=== PATIENT | female | born 1995 | race Caucasian/White ===

== ENCOUNTER 2016-12-30 16:40 | Emergency (ER) | payer BC, OTHER ==
[2016-12-30 17:17] VITALS: RESP 18
[2016-12-30] MEDS ORDERED: SODIUM CHLORIDE 0.9% 1,000 ML IV STA (18:55)
--- NOTE | 2016-12-30 18:57 | ED ---
General Adult HPI - General Chief complaint: Vaginal Bleeding Stated complaint: Spotting, abd pain, Time Seen by Provider: 12/30/16 18:44 Source: patient, RN notes reviewed Mode of arrival: ambulatory Limitations: no limitations - History of Present Illness Initial comments: 21-year-old female presents to the emergency Department chief complaint of abdominal cramping in . Patient states she started to have some white spotting and now it has progressed to blood with clots. Patient states that she 's had some cramping with this as well. Patient states she feels like she had a very light menstrual cycle one month ago but she does not know how far along she is. Patient states she is a . Patient denies any fever chills nausea or vomiting with this. Patient states that she was concerned due to her symptoms so she thought that she should be evaluated. Patient denies any recent fever, chills, shortness of breath, chest pain, back pain, nausea vomiting, numbness or tingling, dysuria or hematuria, constipation or diarrhea, headaches or visual changes, or any other current symptoms. - Related Data Previous Rx's Medication Instructions Recorded Nitrofurantoin Macrocrystal 100 mg PO BID #14 cap 12/30/16 [Macrodantin] Lrr-Ljnl-Lbjod Acid 1 cap PO DAILY #30 cap 12/30/16 [-U Capsule (formulary)] Allergies Allergy/AdvReac Type Severity Reaction Status Date / Time Influenza Virus Vaccines Allergy Nausea & Verified 12/30/16 19:01 Vomiting penicillin V Allergy Rash/Hives Verified 12/30/16 19:01 Penicillins Allergy Rash/Hives Verified 12/30/16 19:01 Sulfa (Sulfonamide Allergy Rash/Hives Verified 12/30/16 19:01 Antibiotics) Review of Systems ROS Statement: Those systems with pertinent positive or pertinent negative responses have been documented in the HPI. ROS Other: All systems not noted in ROS Statement are negative. 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 History of Any Multi-Drug Resistant Organisms: None Reported Past Surgical History: No Surgical Hx Reported Additional Past Surgical History / Comment(s): wisdom teeth Past Anesthesia/Blood Transfusion Reactions: No Reported Reaction Past Psychological History: No Psychological Hx Reported, Depression Smoking Status: Never smoker Past Alcohol Use History: None Reported Past Drug Use History: None Reported - Past Family History Mother History Unknown: Yes Additional Family Medical History / Comment(s): grandmother cervix cancer, maternal grandfather "heart issues" General Exam - General Exam Comments Initial Comments: General: The patient is awake and alert, in no distress, and does not appear acutely ill. Eye: Pupils are equal, round and reactive to light, extra-ocular movements are intact; there is normal conjunctiva bilaterally. No signs of icterus. Ears, nose, mouth and throat: There are moist mucous membranes. Neck: The neck is supple, there is no tenderness. Cardiovascular: There is a regular rate and rhythm. No murmur, rub or gallop is appreciated. Respiratory: Lungs are clear to auscultation, respirations are non-labored, breath sounds are equal. No wheezes, stridor, rales, or rhonchi. Gastrointestinal: Soft, non-distended, non-tender abdomen without masses or organomegaly noted. There is no rebound or guarding present. No CVA tenderness. Bowel sounds are unremarkable. Back: There is no tenderness to palpation in the midline. There is no obvious deformity. No rashes noted. Musculoskeletal: Normal ROM, no tenderness, There is no pedal edema. There is no calf tenderness or swelling. Sensation intact. Pulses equal bilaterally 2+. Neurological: CN II-XII intact, There are no obvious motor or sensory deficits. Coordination appears grossly intact. Speech is normal. Skin: Skin is warm and dry and no rashes or lesions are noted. Psychiatric: Cooperative, appropriate mood & affect, normal judgment. Limitations: no limitations External exam: Present: normal external exam Speculum exam: Present: normal speculum exam By manual exam: Present: normal by manual exam Course Vital Signs 12/30/16 12/30/16 17:14 18:17 Temperature 98.3 F Pulse Rate 88 75 Respiratory 18 18 Rate Blood Pressure 130/62 122/60 O2 Sat by Pulse 100 100 Oximetry Medical Decision Making - Medical Decision Making 21-year-old female presents emergency 5 chief complaint of vaginal bleeding and abdominal cramping and . At this time patient's lab work is reviewed as well as ultrasound. Patient does appear to be 20 weeks. We discussed she does need to see her [facility]. We'll start her on vitamins as well as antibiotics for UTI. We did discuss return parameters and follow-up and all questions. She stated that she understood and she is in agreement the plan. She will be discharged home. - Lab Data Result diagrams: 12/30/16 18:55 12/30/16 18:55 Lab Results 12/30/16 12/30/16 12/30/16 Range/Units 18:55 18:55 18:55 WBC 12.0 H (3.8-10.6) k/uL RBC 3.92 (3.80-5.40) m/uL Hgb 11.7 (11.4-16.0) gm/dL Hct 34.2 (34.0-46.0) % MCV 87.1 (80.0-100.0) fL MCH 29.8 (25.0-35.0) pg MCHC 34.2 (31.0-37.0) g/dL RDW 15.8 H (11.5-15.5) % Plt Count 331 (150-450) k/uL Neutrophils % 74 % Lymphocytes % 19 % Monocytes % 4 % Eosinophils % 1 % Basophils % 0 % Neutrophils # 8.9 H (1.3-7.7) k/uL Lymphocytes # 2.3 (1.0-4.8) k/uL Monocytes # 0.5 (0-1.0) k/uL Eosinophils # 0.1 (0-0.7) k/uL Basophils # 0.0 (0-0.2) k/uL Sodium 137 (137-145) mmol/L Potassium 4.5 (3.5-5.1) mmol/L Chloride 107 (98-107) mmol/L Carbon Dioxide 23 (22-30) mmol/L Anion Gap 7 mmol/L BUN 3 L (7-17) mg/dL Creatinine 0.53 (0.52-1.04) mg/dL Est GFR (MDRD) Af Amer >60 (>60 ml/min/1.73 sqM) Est GFR (MDRD) Non-Af >60 (>60 ml/min/1.73 sqM) Glucose 67 L (74-99) mg/dL Calcium 9.0 (8.4-10.2) mg/dL Total Bilirubin 0.4 (0.2-1.3) mg/dL AST 20 (14-36) U/L ALT 20 (9-52) U/L Alkaline Phosphatase 56 (38-126) U/L Total Protein 7.0 (6.3-8.2) g/dL Albumin 3.7 (3.5-5.0) g/dL HCG, Quant 14167.3 mIU/mL Urine Color Urine Appearance (Clear) Urine pH (5.0-8.0) Ur Specific [place] (1.001-1.035) Urine Protein (Negative) Urine Glucose (UA) (Negative) Urine Ketones (Negative) Urine Blood (Negative) Urine Nitrite (Negative) Urine Bilirubin (Negative) Urine Urobilinogen (<2.0) mg/dL Ur Leukocyte Esterase (Negative) Urine RBC (0-5) /hpf Urine WBC (0-5) /hpf Urine WBC Clumps (None) /hpf Ur Squamous Epith Cells (0-4) /hpf Urine Mucus (None) /hpf Blood Type A Positive Blood Type Recheck No 12/30/16 Range/Units 19:00 WBC (3.8-10.6) k/uL RBC (3.80-5.40) m/uL Hgb (11.4-16.0) gm/dL Hct (34.0-46.0) % MCV (80.0-100.0) fL MCH (25.0-35.0) pg MCHC (31.0-37.0) g/dL RDW (11.5-15.5) % Plt Count (150-450) k/uL Neutrophils % % Lymphocytes % % Monocytes % % Eosinophils % % Basophils % % Neutrophils # (1.3-7.7) k/uL Lymphocytes # (1.0-4.8) k/uL Monocytes # (0-1.0) k/uL Eosinophils # (0-0.7) k/uL Basophils # (0-0.2) k/uL Sodium (137-145) mmol/L Potassium (3.5-5.1) mmol/L Chloride (98-107) mmol/L Carbon Dioxide (22-30) mmol/L Anion Gap mmol/L BUN (7-17) mg/dL Creatinine (0.52-1.04) mg/dL Est GFR (MDRD) Af Amer (>60 ml/min/1.73 sqM) Est GFR (MDRD) Non-Af (>60 ml/min/1.73 sqM) Glucose (74-99) mg/dL Calcium (8.4-10.2) mg/dL Total Bilirubin (0.2-1.3) mg/dL AST (14-36) U/L ALT (9-52) U/L Alkaline Phosphatase (38-126) U/L Total Protein (6.3-8.2) g/dL Albumin (3.5-5.0) g/dL HCG, Quant mIU/mL Urine Color Yellow Urine Appearance Cloudy H (Clear) Urine pH 5.5 (5.0-8.0) Ur Specific [place] 1.008 (1.001-1.035) Urine Protein 1+ H (Negative) Urine Glucose (UA) Negative (Negative) Urine Ketones Negative (Negative) Urine Blood Moderate H (Negative) Urine Nitrite Negative (Negative) Urine Bilirubin Negative (Negative) Urine Urobilinogen <2.0 (<2.0) mg/dL Ur Leukocyte Esterase Large H (Negative) Urine RBC 29 H (0-5) /hpf Urine WBC >182 H (0-5) /hpf Urine WBC Clumps Few H (None) /hpf Ur Squamous Epith Cells <1 (0-4) /hpf Urine Mucus Rare H (None) /hpf Blood Type Blood Type Recheck Disposition Clinical Impression: UTI (urinary tract infection), Disposition: HOME SELF-CARE Condition: Stable Instructions: (ED), Urinary Tract Infection in Women (ED) Additional Instructions: Please use medication as discussed. Please follow up with family doctor if symptoms have not improved over the next two days. Please return to the emergency room if your symptoms increase or worsen or for any other concerns. Prescriptions: Nitrofurantoin Macrocrystal [Macrodantin] 100 mg PO BID #14 cap [id number] Acid [-U Capsule (formulary)] 1 cap PO DAILY # 30 cap Referrals: Charles Song MD [Primary Care Provider] - 1-2 days Leticia Nieto DO [Doctor of Osteopathic Medicine] - 1-2 days Time of Disposition: 20:50
[2016-12-30 19:12] LABS: Basophils % (A) 0 %; CH 29.1; CHCM 33.6; Eosinophils # (A) 0.1 k/uL (0-0.7); Eosinophils % (A) 1 %; HCT 34.2 % (34.0-46.0); HDW 2.96; HGB 11.7 gm/dL (11.4-16.0); Luc # (Auto) 0.16; Luc % (Auto) 1; Lymphocytes # (A) 2.3 k/uL (1.0-4.8); Lymphocytes % (A) 19 %; MCH 29.8 pg (25.0-35.0); MCHC 34.2 g/dL (31.0-37.0); MCV 87.1 fL (80.0-100.0); Mean Platelet Volume 7.2; Monocytes # (A) 0.5 k/uL (0-1.0); Monocytes % (A) 4 %; Neutrophils # (A) 8.9 k/uL (1.3-7.7); Neutrophils % (A) 74 %; RBC 3.92 m/uL (3.80-5.40); RDW 15.8 % (11.5-15.5); WBC (Perox) 12.27
[2016-12-30 19:28] LABS: ALT 20 U/L (9-52); AST 20 U/L (14-36); Alkaline Phosphatase 56 U/L (38-126); Anion Gap 7 mmol/L; Blood Urea Nitrogen 3 mg/dL (7-17); Carbon Dioxide 23 mmol/L (22-30); Chloride 107 mmol/L (98-107); Glucose 67 mg/dL (74-99); Non-African American GFR(MDRD) >60 (>60 ml/min/1.73 sqM); Potassium 4.5 mmol/L (3.5-5.1); Sodium 137 mmol/L (137-145); Total Bilirubin 0.4 mg/dL (0.2-1.3)
[2016-12-30 19:38] LABS: Appearance,Urine Cloudy (Clear); Bilirubin,Urine Negative (Negative); Glucose,Urine (UA) Negative (Negative); Ketones,Urine Negative (Negative); Leukocyte Esterase,Urine Large (Negative); Mucus,Urine Rare /hpf; Nitrite,Urine Negative (Negative); PH, Urine 5.5 (5.0-8.0); Particle Count 4853; Protein,Urine 1+ (Negative); RBC,Urine 29 /hpf (0-5); Specific Gravity,Urine 1.008 (1.001-1.035); Squamous Epithelial Cell,Urine <1 /hpf (0-4); UA Billing (MACRO vs. MICRO) MICRO; Urobilinogen,Urine <2.0 mg/dL (<2.0); WBC,Urine >182 /hpf (0-5)
[2016-12-30 20:11] LABS: HCG,Quantitative Serum 18888.3 mIU/mL
--- NOTE | 2016-12-30 20:25 | US ---
EXAMINATION TYPE: US OB >= 14 wk fetus DATE OF EXAM: 12/30/2016 COMPARISON: None CLINICAL HISTORY: PainBleeding and cramping x couple days TECHNIQUE: Transabdominal (TA) GESTATIONAL AGE / DATING Physician Established: Not established yet Dates by LMP: Unknown Dates by First Scan: This is 1st scan Dates by Current Scan: (20 weeks/4 days) EDC: 05/15/2017 SURVEY IUP: Single PLACENTA: Posterior PREVIA: No Previa VANESA: 14.9 cm Normal CERVICAL LENGTH (transabdominal: norm > 3.0cm): 3.7 cm BIOMETRY PRESENTATION: Breech BPD: 4.9 cm 20 weeks / 6 days HC: 18.6 cm 20 weeks / 6 days amniotic fluid is adequate. AC: 16.7 cm 21 weeks / 4 days FL: 3.3 cm 20 weeks / 3 days ESTIMATED WEIGHT IN GRAMS: 395.0 grams ESTIMATED WEIGHT IN LBS/OZS: 0 lbs. 14 oz. HC/AC: 1.12 Normal FL/AC: 20.05 HEART RATE: 145 bpm RHYTHM: Normal Viable single IUP measuring 20 weeks 4 days with a heart rate of 145bpm and an estimated delivery ban e of 05/15/2017. IMPRESSION: Ultrasound gestational age is 20 weeks 4 days. I see no complicating process. Amniotic fluid is adequ ate.
[2016-12-30 21:18] VITALS: BP 134/61; PULSE 78; TEMP 98
== END 2016-12-30 21:17 | disposition home or self-care (01) ==
LOC: EC 16:40
DX: O23.42 Unspecified infection of urinary tract in pregnancy, second trimester (principal); O46.92 Antepartum hemorrhage, unspecified, second trimester; O99.89 Other specified diseases and conditions complicating pregnancy, childbirth and the puerperium; R10.9 Unspecified abdominal pain; Z3A.20 20 weeks gestation of pregnancy; Z88.7 Allergy status to serum and vaccine; Z88.0 Allergy status to penicillin; Z88.2 Allergy status to sulfonamides
CPT/HCPCS: 36415; 86900; 86901; 80053; 87591; 87491; 85025; 81001; 84702; 87808; 87070; 87086; 76805; 99284; 96365; 96361; J0696; 87205

== ENCOUNTER → 2017-01-25 | Outpatient (CLI) | payer BC, OTHER ==
[2017-01-25 09:54] LABS: CHCM 32.7; HCT 32.1 % (34.0-46.0); HDW 3.21; HGB 10.9 gm/dL (11.4-16.0); Hypochromasia Slight; MCH 29.1 pg (25.0-35.0); MCHC 33.9 g/dL (31.0-37.0); MCV 85.9 fL (80.0-100.0); Mean Platelet Volume 7.1; RBC 3.73 m/uL (3.80-5.40); WBC 10.8 k/uL (3.8-10.6)
[2017-01-25 10:26] LABS: Non-African American GFR(MDRD) >60 (>60 ml/min/1.73 sqM)
[2017-01-25 10:57] LABS: Hepatitis B Surface Ag Index 0.06
[2017-01-25 15:56] LABS: Treponemal Ab Non-Reactive (Non-Reactive)
[2017-01-26 06:43] LABS: Toxoplasma Antibody (IgG) 21.2 IU/mL (<7.2)
== END | disposition home or self-care (01) ==
LOC: LABWHC1 08:29
PROVIDERS: ATTEND Obstetrics & Gynecology
DX: Z34.81 Encounter for supervision of other normal pregnancy, first trimester (principal); R53.83 Other fatigue
CPT/HCPCS: 36415; 82565; 82950; 85027; 86762; 86777; 86778; 86780; 86850; 86900; 86901; 87340; 87390

== ENCOUNTER 2017-03-12 11:25 | Outpatient (CLI) | payer BC, OTHER ==
[2017-03-12] MEDS ORDERED: BETAMET ACET-BETAMETH SOD PHOS 6 MG/ML VIAL IM SCH (12:00)
--- NOTE | 2017-04-29 08:44 | P.MSEPDOC ---
Presenting Problems - Arrival Data Date of Arrival on Unit: 03/12/17 Time of Arrival on Unit: 11:25 Mode of Transport: Ambulatory Medical History - Information : 2 Para: 1 Term: 1 : 0 Abortions: Spontaneous or Elective: 0 Number of Living Children: 1 - Gestational Age Gestational Age by JANELL (wks/days): 30 Weeks and 6 Days Disposition - Disposition OB Disposition: Discharge to home, Written follow up instructions reviewed Discharge Date: 03/12/17 Discharge Time: 12:20 I agree with the RN Medical Screening Exam: Yes Risk & Benefit of care provided described in d/c instruction: Yes Diagnosis: LABOR WITHOUT DELIVERY, THIRD TRIMESTER
== END 2017-03-12 12:20 | disposition home or self-care (01) ==
LOC: FBPOP 11:25
PROVIDERS: ATTEND Obstetrics & Gynecology
DX: O60.03 Preterm labor without delivery, third trimester (principal); Z3A.30 30 weeks gestation of pregnancy
CPT/HCPCS: 59025; 99214; 96372; 84112; J0702

== ENCOUNTER 2017-03-13 11:41 | Outpatient (CLI) | payer BC, OTHER ==
[2017-03-13] MEDS ORDERED: BETAMET ACET-BETAMETH SOD PHOS 6 MG/ML VIAL IM ONE (12:15)
[2017-03-13 13:35] VITALS: BP 132/63; PULSE 89; RESP 18; TEMP 98.8
--- NOTE | 2017-03-14 08:21 | P.MSEPDOC ---
Presenting Problems - Arrival Data Date of Arrival on Unit: 03/13/17 Time of Arrival on Unit: 11:41 Mode of Transport: Ambulatory - Complaint OB-Reason for Admission/Chief Complaint: NST, Celestone Injection, Other Comment: ffn Medical History - Information : 2 Para: 1 Term: 1 : 0 Abortions: Spontaneous or Elective: 0 Number of Living Children: 1 - Gestational Age Gestational Age by JANELL (wks/days): 31 Weeks and 0 Days Review of Systems - Review of Systems Constitutional: No problems Breast: No problems ENT: No problems Cardiovascular: No problems Respiratory: No problems Gastrointestinal: No problems Genitourinary: No problems Musculoskeletal: No problems Neurological: No problems Skin: No problems Vital Signs - Temperature Temperature: 98.8 F Temperature Source: Temporal Artery Scan - Pulse Right Brachial Pulse Rate: 89 Pulse Assessment Method: Automatic Cuff - Respirations Respiratory Rate: 18 Oxygen Delivery Method: Room Air O2 Sat by Pulse Oximetry: 100 - Blood Pressure Right Arm Blood Pressure: 132/63 Blood Pressure Mean: 86 Blood Pressure Source: Automatic Cuff Medical Screen Scoring (Pre) - Cervical Exam Dilation: Exam Deferred Effacement: Exam Deferred - Uterine Contractions Frequency: N/A Duration: N/A Intensity: N/A - Maternal Vital Signs Maternal Temperature: N/A Maternal Blood Pressure: N/A Signs of Preeclampsia: N/A Maternal Respirations: N/A - Maternal Trauma Maternal Trauma: N/A - Assessment Baseline FHR: 125 Heart Rate - NICHD Category: Category I (Normal) = 0 NST: Reactive Position: N/A Station: N/A - Total Score Total Score (Pre): 0 - Level of Risk Level of Risk: N/A Physician Notification (Pre) - Physician Notified Physician Notified Date: 03/13/17 Physician Notified Time: 13:17 Physician/Practitioner Notifed:: Dr. Wright Spoke With: Dr. Wright New Order Received: Yes - Notification Comment Comment: discharge pt home Disposition - Disposition OB Disposition: Triage, Discharge to home, Written follow up instructions reviewed Discharge Date: 03/13/17 Discharge Time: 13:30 I agree with the RN Medical Screening Exam: Yes Risk & Benefit of care provided described in d/c instruction: Yes Diagnosis: LABOR WITHOUT DELIVERY, THIRD TRIMESTER
== END 2017-03-13 13:30 | disposition home or self-care (01) ==
LOC: FBPOP 11:41
PROVIDERS: ATTEND Obstetrics & Gynecology
DX: O60.03 Preterm labor without delivery, third trimester (principal); Z3A.31 31 weeks gestation of pregnancy
CPT/HCPCS: 59025; 99213; 96372; 82731; J0702

== ENCOUNTER 2017-04-24 10:56 | Inpatient (IN) | payer BC, OTHER ==
[2017-04-24] MEDS ORDERED: CARBOPROST TROMETHAMINE 250 MCG/ML 1 ML AMP IM PRN (11:00)
[2017-04-24] MEDS ORDERED: LIDOCAINE 1% (PF) 10 MG/ML (30 ML SDV) SQ PRN (11:00)
[2017-04-24] MEDS ORDERED: TERBUTALINE 1 MG/ML VIAL SQ PRN (11:00)
[2017-04-24] MEDS ORDERED: OXYTOCIN 20 UNITS/1000 ML NS 1,000 ML IV SCH ×2 (11:00→16:27)
[2017-04-24] MEDS ORDERED: METHYLERGONOVINE 0.2 MG/ML 1 ML AMP IM PRN (11:00)
[2017-04-24] MEDS ORDERED: OXYTOCIN 10 UNIT/ML 1 ML VIAL IM PRN (11:00)
[2017-04-24 11:10] VITALS: BMI 30.8
[2017-04-24] MEDS: LACTATED RINGERS 1,000 ML IV SCH ×2 (11:17→13:42)
[2017-04-24] MEDS ORDERED: CLINDAMYCIN 900 MG in DEXTROSE 5% IN WATER 50 ML IVPB STA ×2 (11:40)
[2017-04-24 12:08] LABS: Basophils % (A) 0 %; CHCM 31.6; Eosinophils # (A) 0.1 k/uL (0-0.7); Eosinophils % (A) 1 %; HCT 30.1 % (34.0-46.0); HDW 3.26; HGB 9.5 gm/dL (11.4-16.0); Hypochromasia Moderate; Luc # (Auto) 0.13; Luc % (Auto) 1; Lymphocytes # (A) 2.7 k/uL (1.0-4.8); Lymphocytes % (A) 27 %; MCHC 31.4 g/dL (31.0-37.0); MCV 79.6 fL (80.0-100.0); Mean Platelet Volume 7.6; Monocytes # (A) 0.6 k/uL (0-1.0); Monocytes % (A) 6 %; Neutrophils # (A) 6.6 k/uL (1.3-7.7); Neutrophils % (A) 65 %; RBC 3.78 m/uL (3.80-5.40); WBC 10.3 k/uL (3.8-10.6); WBC (Perox) 10.95
--- NOTE | 2017-04-24 13:23 | P.HPOB ---
History of Present Illness H&P Date: 04/24/17 Chief Complaint: Pressure, advanced cervical dilation This is a 21-year-old female 2 para 1 at 37-0/7 weeks with an estimated date of confinement of 05/15/2017, who presents to labor and delivery after being seen in the office today for her routine visit. She was found to be 7-1/2 cm at that visit. She had previously been found to be 3 cm at 31 weeks and was given 2 doses of Celestone at that time. She was transferred to maternal- medicine when she was at 34 weeks and found to be donta. She did leave AGAINST MEDICAL ADVICE but continued to have no further contractions. The last 2 weeks she has been dilated to 5-1/2 cm. Today she complained of more pressure and back pain along with more mucus discharge. She also did have some bloody show approximate 2 days ago. labs: GC/chlamydia-negative Random glucose-67 Blood type-A+ Obstetrical ultrasound-normal anatomy One hour Glucola-68 Hepatitis B surface antigen-negative Hemoglobin-10.9 Rubella-nonimmune Toxoplasma screen-positive IgG HIV-nonreactive Syphilis antibody-negative Obstetrical history: . History of 1 vaginal delivery at 40-1/2 weeks. Gynecologic history: No history of sexual transmitted diseases. Social history: She is single. 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 History of Any Multi-Drug Resistant Organisms: None Reported Additional Past Surgical History / Comment(s): wisdom teeth Past Anesthesia/Blood Transfusion Reactions: No Reported Reaction Past Psychological History: No Psychological Hx Reported Smoking Status: Never smoker Past Alcohol Use History: None Reported Past Drug Use History: None Reported - Past Family History Mother History Unknown: Yes Additional Family Medical History / Comment(s): grandmother cervix cancer, maternal grandfather "heart issues" Medications and Allergies Home Medications Medication Instructions Recorded Confirmed Type No Known Home Medications [No 04/24/17 04/24/17 History Known Home Medications] Allergies Allergy/AdvReac Type Severity Reaction Status Date / Time Influenza Virus Vaccines Allergy Nausea & Verified 04/24/17 11:00 Vomiting penicillin V Allergy Rash/Hives Verified 04/24/17 11:00 Penicillins Allergy Rash/Hives Verified 04/24/17 11:00 Sulfa (Sulfonamide Allergy Rash/Hives Verified 04/24/17 11:00 Antibiotics) Exam Osteopathic Statement: *. No significant issues noted on an osteopathic structural exam other than those noted in the History and Physical/Consult. - Vital Signs Vital signs: Vital Signs Temp Pulse Resp BP Pulse Ox 04/24/17 11:02 97.9 F 96 16 130/74 99 Intake and Output 04/23/17 04/24/17 04/24/17 22:59 06:59 14:59 Other: Weight 89.358 kg Patient Weight 04/25/17 06:59 Weight 89.358 kg HEENT: Within normal limits Heart: Regular rate and rhythm Lungs: Clear to auscultation bilaterally Abdomen: Cervix: 7-1/2 cm/70%/-2 station heart tones reactive Contractions: Irregular Extremities: Negative Homans Results Result Diagrams: 04/24/17 11:20 Abnormal Lab Results - Last 24 Hours (Table) 04/24/17 Range/Units 11:20 RBC 3.78 L (3.80-5.40) m/uL Hgb 9.5 L (11.4-16.0) gm/dL Hct 30.1 L (34.0-46.0) % MCV 79.6 L (80.0-100.0) fL RDW 16.0 H (11.5-15.5) % Assessment and Plan (1) 37 weeks gestation of Current Visit: Yes Status: Acute Code(s): Z3A.37 - 37 WEEKS GESTATION OF SNOMED Code(s): 30425819 (2) Premature cervical dilation in third trimester Current Visit: Yes Status: Acute Code(s): O34.33 - MATERNAL CARE FOR CERVICAL INCOMPETENCE, THIRD TRIMESTER SNOMED Code(s): 205317395 (3) Active labor at term Current Visit: Yes Status: Acute Code(s): XVJ9026 - SNOMED Code(s): 54652524 (4) Group B Streptococcus carrier, +RV culture, currently Current Visit: Yes Status: Acute Code(s): O99.820 - STREPTOCOCCUS B CARRIER STATE COMPLICATING SNOMED Code(s): 75656436 Plan: Plan is admission and antibiotic prophylaxis for group B streptococcus. Artificial rupture membranes and expectant management.
[2017-04-24] MEDS ORDERED: BUTORPHANOL 1 MG/ML 1 ML VIAL IV PRN (13:56)
--- NOTE | 2017-04-24 16:03 | P.PROBDLV ---
Vaginal Delivery Note - . Vaginal Delivery Note: The patient progressed to complete dilation after artificial rupture membranes with clear fluid noted. She did receive a little bit of oxytocin augmentation of labor. She also received 1 dose of Stadol. Once reaching complete, she began pushing. 's head came to a crown fairly rapidly. Infant's head delivered across the perineum followed by the anterior shoulder. 's head was in a right occiput anterior lie. Nose and mouth were bulb suctioned at the perineum and then with one further push the remainder the infant easily delivered and was placed on mother's abdomen. Cord was clamped and cut and was taken to warmer for evaluation. A viable male infant was noted with scores of 9 at 1 minute and 9 at 5 minutes. Infant weight is pending at this time. Placenta delivered shortly thereafter intact, with a three-vessel cord. Uterus contracted well after oxytocin was given and uterine massage was carried out. Inspection of the perineum revealed no perineal lacerations. Estimated blood loss was approximately 150 mL's. Both mother and infant are in stable condition.
[2017-04-24] MEDS ORDERED: ZOLPIDEM 5 MG TAB PO PRN (16:27)
[2017-04-24] MEDS ORDERED: diphenhydrAMINE 25 MG CAP PO PRN (16:27)
[2017-04-24] MEDS ORDERED: WITCH HAZEL 1 EACH MED..PAD TOPICAL PRN (16:27)
[2017-04-24] MEDS ORDERED: BENZOCAINE/MENTHOL SPRAY 1 GM/SPRAY AEROSOL TOPICAL PRN (16:27)
[2017-04-24] MEDS ORDERED: diphenhydrAMINE 50 MG/ML 1 ML VIAL IVP PRN ×2 (16:27)
[2017-04-24] MEDS ORDERED: LANOLIN CREAM 5 GM TUBE TOPICAL PRN (16:27)
[2017-04-24] MEDS ORDERED: HYDROCORTISONE 2.5% RECTAL CREAM 30 GM TUBE RECTAL PRN (16:27)
[2017-04-24] MEDS ORDERED: SIMETHICONE 80 MG CHEWABLE PO PRN (16:27)
[2017-04-24] MEDS ORDERED: diphenhydrAMINE 50 MG CAP PO PRN (16:27)
[2017-04-24] MEDS: IBUPROFEN 600 MG TAB PO PRN (18:45)
[2017-04-24] MEDS ORDERED: CLINDAMYCIN 900 MG in DEXTROSE 5% IN WATER 50 ML IVPB SCH ×4 (19:00→20:00)
[2017-04-24] MEDS: ACETAMINOPHEN TAB 325 MG TAB PO PRN (20:35)
[2017-04-24] MEDS: SENNOSIDES-DOCUSATE SODIUM 1 EACH TAB PO SCH (21:54)
[2017-04-25] MEDS: ACETAMINOPHEN TAB 325 MG TAB PO PRN ×2 (04:47→08:56)
[2017-04-25 07:23] LABS: Basophils # (A) 0.1 k/uL (0-0.2); Basophils % (A) 0 %; CH 24.5; Eosinophils # (A) 0.2 k/uL (0-0.7); Eosinophils % (A) 2 %; HCT 26.9 % (34.0-46.0); HDW 3.19; HGB 8.4 gm/dL (11.4-16.0); Hypochromasia Moderate; Luc # (Auto) 0.18; Luc % (Auto) 1; Lymphocytes # (A) 3.7 k/uL (1.0-4.8); Lymphocytes % (A) 29 %; MCH 24.6 pg (25.0-35.0); MCV 79.2 fL (80.0-100.0); Mean Platelet Volume 7.6; Monocytes # (A) 0.7 k/uL (0-1.0); Monocytes % (A) 6 %; Neutrophils # (A) 7.9 k/uL (1.3-7.7); Neutrophils % (A) 62 %; RDW 15.4 % (11.5-15.5); WBC 12.7 k/uL (3.8-10.6); WBC (Perox) 13.35
--- NOTE | 2017-04-25 08:46 | P.PNOBGVD ---
Subjective - Subjective Principal diagnosis: Status post vaginal delivery day #1 Interval history: Patient is doing okay. Lochia is decreasing. Pain is fairly well controlled with Tylenol. Baby did go to the nursery for observation due to low sugars. Patient reports: Reports appetite normal, Reports voiding normally, Reports pain well controlled, Reports ambulating normally : other (Went to nursery for low sugars) Objective - Latest Vital Signs Latest vital signs: Vital Signs Temp Pulse Resp BP Pulse Ox 04/25/17 04:00 98.1 F 70 18 110/70 100 04/25/17 00:00 98.9 F 73 18 125/72 100 04/24/17 20:00 98.1 F 74 18 142/75 100 04/24/17 18:04 97.7 F 99 16 133/67 04/24/17 17:34 96 16 129/65 04/24/17 17:04 97 16 134/70 04/24/17 16:49 99 16 129/67 04/24/17 16:32 98 16 121/65 04/24/17 16:17 97.7 F 100 16 128/68 04/24/17 16:04 97.9 F 96 16 131/72 04/24/17 11:02 97.9 F 96 16 130/74 99 Intake and Output 04/24/17 04/25/17 04/25/17 22:59 06:59 14:59 Intake Total 4.85 Output Total 300 Balance -295.15 Intake: Intake, IV Titration 4.85 Amount Oxytocin 20 Units/1000 ml 4.85 Ns 1,000 ml @ 1 MILLIUNIT/MIN 3 mls/hr IV .Q24H VINICIUS Rx#:[id number] Output: Estimated Blood Loss 300 Other: # Voids 1 - Exam Extremities: Present: normal. Absent: tenderness, edema Abdomen: Present: normal appearance, soft. Absent: distention, tenderness Uterus: Present: normal, firm. Absent: tenderness - Labs Labs: Abnormal Lab Results - Last 24 Hours (Table) 04/24/17 04/25/17 Range/Units 11:20 07:04 WBC 12.7 H (3.8-10.6) k/uL RBC 3.78 L 3.40 L (3.80-5.40) m/uL Hgb 9.5 L 8.4 L (11.4-16.0) gm/dL Hct 30.1 L 26.9 L (34.0-46.0) % MCV 79.6 L 79.2 L (80.0-100.0) fL MCH 24.6 L (25.0-35.0) pg RDW 16.0 H (11.5-15.5) % Neutrophils # 7.9 H (1.3-7.7) k/uL Assessment and Plan Assessment: Impression is status post vaginal delivery day #1. (1) 37 weeks gestation of Current Visit: Yes Status: Acute Code(s): Z3A.37 - 37 WEEKS GESTATION OF SNOMED Code(s): 96320411 (2) Premature cervical dilation in third trimester Current Visit: Yes Status: Acute Code(s): O34.33 - MATERNAL CARE FOR CERVICAL INCOMPETENCE, THIRD TRIMESTER SNOMED Code(s): 460683363 (3) Active labor at term Current Visit: Yes Status: Acute Code(s): HAQ4203 - SNOMED Code(s): 83112615 (4) Group B Streptococcus carrier, +RV culture, currently Current Visit: Yes Status: Acute Code(s): O99.820 - STREPTOCOCCUS B CARRIER STATE COMPLICATING SNOMED Code(s): 00351267 Plan: Plan is to continue with care. Anticipate discharge home tomorrow.
[2017-04-25] MEDS ORDERED: MEASLES-MUMPS-RUBELLA VACC/PF 12,500 UNIT/0.5 ML VIAL SQ ONE (09:03)
[2017-04-25] MEDS: SENNOSIDES-DOCUSATE SODIUM 1 EACH TAB PO SCH ×2 (09:59→21:10)
[2017-04-25] MEDS: IBUPROFEN 600 MG TAB PO PRN ×2 (14:16→20:17)
[2017-04-25 18:37] VITALS: RESP 16
[2017-04-26] MEDS: ACETAMINOPHEN TAB 325 MG TAB PO PRN ×2 (00:05→18:00)
[2017-04-26] MEDS: SENNOSIDES-DOCUSATE SODIUM 1 EACH TAB PO SCH (08:06)
[2017-04-26] MEDS: IBUPROFEN 600 MG TAB PO PRN ×2 (08:38→15:03)
--- NOTE | 2017-04-26 08:55 | P.DS ---
Providers Date of admission: 04/24/17 10:56 Expected date of discharge: 04/26/17 Attending physician: Nasra Killian - Discharge Diagnosis(es) (1) 37 weeks gestation of Current Visit: Yes Status: Acute (2) Premature cervical dilation in third trimester Current Visit: Yes Status: Acute (3) Active labor at term Current Visit: Yes Status: Acute (4) Group B Streptococcus carrier, +RV culture, currently Current Visit: Yes Status: Acute Hospital Course: This is a 21-year-old female 2 para 1 at 37-0/7 weeks who presented to labor and delivery after being seen in the office and found to be 7-1/2 cm with contractions. She underwent antibiotic prophylaxis and oxytocin augmentation of labor along with artificial rupture of membranes. She delivered vaginally a viable male on 04/24/2017 with scores of 9 at 1 minute and 9 at 5 minutes and weight of 7 lbs. 7 oz. Her course has been essentially uncomplicated. Baby did go to the nursery for antibiotics and management of sugars. She is breast-feeding. Lochia is decreasing. Pain is fairly well controlled with ibuprofen and Tylenol. Vital signs are stable. Abdomen is soft with fundus firm and nontender. Extremities show negative Homans. Impression is status post vaginal delivery day #2. Plan is to discharge home today. She will be given a prescription for breast pump and ibuprofen. She is advised to follow up in the office in 6 weeks for check. She will be given Depo-Provera prior to discharge. She is advised to call the office if she has any further questions or concerns prior to her appointment time. Procedures: Oxytocin augmentation of labor. Spontaneous vaginal delivery of a viable male infant on 04/24/2017 Patient Condition at Discharge: Stable Plan - Discharge Summary Discharge Rx Participant: Yes New Discharge Prescriptions: New Acetaminophen Tab [Tylenol] 650 mg PO Q4HR PRN tab PRN Reason: Mild Pain Or Fever >= 100.5 Ibuprofen [Motrin] 600 mg PO Q6HR PRN #60 tab PRN Reason: Mild Pain Or Fever >= 100.5 Discharge Medication List Acetaminophen Tab [Tylenol] 650 mg PO Q4HR PRN tab 04/26/17 [Rx] Ibuprofen [Motrin] 600 mg PO Q6HR PRN #60 tab 04/26/17 [Rx] Follow up Appointment(s)/Referral(s): Nasra Killian DO [Doctor of Osteopathic Medicine] - 6 Weeks Activity/Diet/Wound Care/Special Instructions: Instructions 1. Do not begin any exercise program for 3 weeks. 2. Do not resume sexual relations for 3 weeks or longer if uncomfortable. 3. You may take tub baths or showers at any time. 4. You may use tampons if desired after 3 weeks. 5. Keep the area of episiotomy (stitches) clean and dry. 6. If you are not nursing, wear a good fitting, supportive bra during the day and limit fluid intake for at least 1 week to prevent breast engorgement. 7. Call the office, [phone], within the next week to make appointment for your 6 week checkup if it has not already been made. 8. Report any of the following occurrences to the doctor promptly: a. Heavy, excessive bleeding b. Chills, fever c. Burning or frequency of urination d. Pain or redness and breasts if nursing e. Increasing pain or swelling in episiotomy (stitches). In addition to the above instructions, the following additional should be followed: 1. No heavy lifting or straining (exercising) until after 6 week checkup. 2. Keep abdominal incision clean and dry: You may wear a dressing if more comfortable. 3. Make office appointment for 10 days after going home or as instructed by her doctor. Discharge Disposition: HOME SELF-CARE
[2017-04-26] MEDS ORDERED: medroxyPROGESTERone 150 MG/ML 1ML VIAL IM ONE (14:42)
[2017-04-26 15:51] VITALS: BP 119/70; PULSE 74; TEMP 97.9
== END 2017-04-26 18:19 | disposition home or self-care (01) | DRG 775 ==
LOC: 4FBP 10:56
PROVIDERS: ADMIT Obstetrics & Gynecology; ATTEND Obstetrics & Gynecology
PROC: 10E0XZZ Delivery of Products of Conception, External Approach (ICD-10-PCS; principal; 2017-04-24)
PROC: 3E0134Z Introduction of Serum, Toxoid and Vaccine into Subcutaneous Tissue, Percutaneous Approach (ICD-10-PCS; 2017-04-25)
DX: O99.824 Streptococcus B carrier state complicating childbirth (principal); O34.33 Maternal care for cervical incompetence, third trimester; Z37.0 Single live birth; Z3A.37 37 weeks gestation of pregnancy; O99.52 Diseases of the respiratory system complicating childbirth; Z23 Encounter for immunization; J45.909 Unspecified asthma, uncomplicated; Z88.0 Allergy status to penicillin; Z88.2 Allergy status to sulfonamides; Z88.7 Allergy status to serum and vaccine
CPT/HCPCS: 85025; 88307; 90707

== ENCOUNTER → 2017-06-13 | Outpatient (CLI) | payer BC, OTHER | END | disposition home or self-care (01) | LOC: LABWHC1 16:09 | PROVIDERS: ATTEND Obstetrics & Gynecology | DX: N91.2 Amenorrhea, unspecified (principal) | CPT/HCPCS: 36415; 84702 ==

== ENCOUNTER 2017-12-28 02:42 | Emergency (ER) | payer BC, OTHER ==
[2017-12-28 02:49] VITALS: RESP 20
[2017-12-28] MEDS ORDERED: SODIUM CHLORIDE 0.9% 500 ML IV STA (03:02)
[2017-12-28] MEDS ORDERED: KETOROLAC 30 MG/ML 1 ML VIAL IVP STA (03:02)
--- NOTE | 2017-12-28 03:08 | ED ---
Chest Pain HPI - General Source: patient, family, RN notes reviewed Mode of arrival: ambulatory Limitations: no limitations <Flako Nelson - Last Filed: 12/28/17 03:37> <Jermain Carvajal - Last Filed: 12/28/17 06:05> - General Chief Complaint: Chest Pain Stated Complaint: diff breathin,heart racing Time Seen by Provider: 12/28/17 02:52 - History of Present Illness Initial Comments: This a 22-year-old female presents emergency Department with chief complaint of palpitations, chest discomfort. Patient states that she's had on-and-off symptoms since she had the Nexplanon implant put in by her V[employer] MECHANIC Dr. Killian. Patient states that she delivered her youngest in April 2017. Patient states that she's had these on and off symptoms of palpitations, shortness of breath and chest discomfort. She states that this last episode woke her up in [place] she's felt lightheaded and dizzy. She states she has right-sided chest discomfort and feeling that her heart is skipping a beat. She states normally she can calm herself down take some ibuprofen and he does resolved. Patient has no prior cardiac disease denies any history of PE or DVT. Denies any recent traveling. There is a family history of clotting disorders. (Flako Nelson) - Related Data Home Medications Medication Instructions Recorded Confirmed Mometasone/Formoterol [Dulera 200 2 puff INHALATION BID 12/28/17 12/28/17 Mcg/5 Mcg Inhaler] Previous Rx's Medication Instructions Recorded Acetaminophen Tab [Tylenol] 650 mg PO Q4HR PRN tab 04/26/17 Ibuprofen [Motrin] 600 mg PO Q6HR PRN #60 tab 04/26/17 Allergies Allergy/AdvReac Type Severity Reaction Status Date / Time Influenza Virus Vaccines Allergy Nausea & Verified 12/28/17 02:49 Vomiting penicillin V Allergy Rash/Hives Verified 12/28/17 02:49 Penicillins Allergy Rash/Hives Verified 12/28/17 02:49 Sulfa (Sulfonamide Allergy Rash/Hives Verified 12/28/17 02:49 Antibiotics) Review of Systems ROS Other: All systems not noted in ROS Statement are negative. <Flako Nelson - Last Filed: 12/28/17 03:37> ROS Other: All systems not noted in ROS Statement are negative. <Jermain Carvajal - Last Filed: 12/28/17 06:05> ROS Statement: Those systems with pertinent positive or pertinent negative responses have been documented in the HPI. 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 History of Any Multi-Drug Resistant Organisms: None Reported Past Surgical History: No Surgical Hx Reported Additional Past Surgical History / Comment(s): wisdom teeth Past Anesthesia/Blood Transfusion Reactions: No Reported Reaction Past Psychological History: No Psychological Hx Reported Smoking Status: Never smoker Past Alcohol Use History: None Reported Past Drug Use History: None Reported - Past Family History Mother History Unknown: Yes Additional Family Medical History / Comment(s): grandmother cervix cancer, maternal grandfather "heart issues" <Flako Nelson - Last Filed: 12/28/17 03:37> General Exam Limitations: no limitations General appearance: alert, in no apparent distress Head exam: Present: atraumatic, normocephalic, normal inspection Neck exam: Present: normal inspection. Absent: tenderness, meningismus, lymphadenopathy Respiratory exam: Present: normal lung sounds bilaterally, chest wall tenderness (Right anterior). Absent: respiratory distress, wheezes, rales, rhonchi, stridor Cardiovascular Exam: Present: normal rhythm, tachycardia, normal heart sounds. Absent: systolic murmur, diastolic murmur, rubs, gallop, clicks GI/Abdominal exam: Present: soft, normal bowel sounds. Absent: distended, tenderness, guarding, rebound, rigid <Flako Nelson - Last Filed: 12/28/17 03:37> Course <Flako Nelson - Last Filed: 12/28/17 03:37> <Jermain Carvajal - Last Filed: 12/28/17 06:05> Vital Signs 12/28/17 02:44 Temperature 98.4 F Pulse Rate 109 H Respiratory 20 Rate Blood Pressure 128/78 O2 Sat by Pulse 97 Oximetry Plan reassessment CBC is normal, d-dimer is normal, compressive metabolic panel and chest x-ray rules out any pneumothorax, these findings were discussed with the patient in and Then advised that she ought to follow up with the cardiology for a echocardiogram and also ruled out any factor 5 abnormality because that she does have that and her family (Jermain Carvajal) Disposition <Flako Nelson - Last Filed: 12/28/17 03:37> Is patient prescribed a controlled substance at d/c from ED?: No <Jermain Carvajal - Last Filed: 12/28/17 06:05> Clinical Impression: Chest pain Disposition: HOME SELF-CARE Condition: Good Instructions: Chest Pain (ED) Referrals: Charles Song MD [Primary Care Provider] - 1-2 days Garret Lantigua MD [STAFF PHYSICIAN] - 1-2 days
[2017-12-28 03:48] LABS: Basophils # (A) 0.1 k/uL (0-0.2); Basophils % (A) 1 %; Eosinophils # (A) 0.2 k/uL (0-0.7); Eosinophils % (A) 2 %; HCT 35.3 % (34.0-46.0); HGB 11.3 gm/dL (11.4-16.0); Lymphocytes % (A) 40 %; MCH 25.8 pg (25.0-35.0); MCV 80.7 fL (80.0-100.0); Mean Platelet Volume 6.4; Monocytes # (A) 0.6 k/uL (0-1.0); Monocytes % (A) 6 %; Neutrophils # (A) 4.9 k/uL (1.3-7.7); Neutrophils % (A) 49 %; Platelet Count 412 k/uL (150-450); RBC 4.37 m/uL (3.80-5.40); RDW 14.5 % (11.5-15.5)
[2017-12-28 03:56] LABS: ALT 38 U/L (9-52); AST 45 U/L (14-36); Alkaline Phosphatase 73 U/L (38-126); Anion Gap 9 mmol/L; Blood Urea Nitrogen 15 mg/dL (7-17); Calcium 9.6 mg/dL (8.4-10.2); Carbon Dioxide 22 mmol/L (22-30); Chloride 110 mmol/L (98-107); Glucose 92 mg/dL (74-99); Magnesium 2.1 mg/dL (1.6-2.3); Potassium 3.9 mmol/L (3.5-5.1); Sodium 141 mmol/L (137-145); Total Bilirubin 0.3 mg/dL (0.2-1.3); Total Protein 7.1 g/dL (6.3-8.2)
--- NOTE | 2017-12-28 03:59 | XR ---
EXAM: XR Chest, 2 Views CLINICAL HISTORY: ITS.REASON XR Reason: Chest Pain TECHNIQUE: Frontal and lateral views of the chest. COMPARISON: No relevant prior studies available. FINDINGS: Lungs: Unremarkable. No consolidation. Pleural space: Unremarkable. No pneumothorax. Heart: Unremarkable. No cardiomegaly. Mediastinum: Unremarkable. Bones/joints: Unremarkable. IMPRESSION: Normal chest x-rays.
[2017-12-28 04:01] LABS: D-Dimer 0.34 mg/L FEU (<0.60); INR 1.1 (<1.2); Partial Thromboplastin Time 22.4 sec (22.0-30.0); Prothrombin Time 10.3 sec (9.0-12.0)
[2017-12-28 06:15] VITALS: BP 134/74; PULSE 87; TEMP 97
== END 2017-12-28 06:18 | disposition home or self-care (01) ==
LOC: EC 02:42
DX: R07.89 Other chest pain (principal); R06.00 Dyspnea, unspecified; R00.2 Palpitations; J45.909 Unspecified asthma, uncomplicated; Z79.51 Long term (current) use of inhaled steroids; Z88.7 Allergy status to serum and vaccine; Z88.0 Allergy status to penicillin; Z88.2 Allergy status to sulfonamides
CPT/HCPCS: 36415; 93005; 85379; 80053; 83735; 84484; 85025; 85610; 85730; 71046; 99285; 96374; 96361 ×3; J1885

== ENCOUNTER → 2018-08-30 | Outpatient (CLI) | payer BC, OTHER ==
[2018-08-30 17:04] LABS: DHEA Sulfate 118.4 ug/dL (26.0-430.0); T3, Uptake 23 % (23-37)
[2018-08-30 17:06] LABS: T4, Free (Free Thyroxine) 1.3 ng/dL (0.80-1.80)
[2018-08-30 17:07] LABS: Insulin Level 23.2 mIU/mL (3.0-25.0)
[2018-08-30 18:17] LABS: HIV 1 AB Non-Reactive (Non-Reactive); HIV AB P24 Non-Reactive (Non-Reactive); HIV P24 AG Non-Reactive (Non-Reactive)
[2018-08-30 22:40] LABS: Hemoglobin A1C 5.2 % (4.0-6.0)
== END | disposition home or self-care (01) ==
LOC: LABWHC1 09:09
PROVIDERS: ATTEND Obstetrics & Gynecology
DX: E28.2 Polycystic ovarian syndrome (principal); Z11.3 Encounter for screening for infections with a predominantly sexual mode of transmission
CPT/HCPCS: 36415; 82627; 82670; 82947; 83001; 83002; 83036; 83525; 84402; 84403; 84439; 84443; 84479; 86780; 87390

== ENCOUNTER → 2018-12-03 | Outpatient (CLI) | payer BC, OTHER ==
[2018-12-03 13:40] LABS: Basophils % (A) 1 %; Eosinophils # (A) 0.2 k/uL (0-0.7); Eosinophils % (A) 3 %; HCT 38.4 % (34.0-46.0); HGB 11.9 gm/dL (11.4-16.0); Hypochromasia Slight; Lymphocytes # (A) 2.5 k/uL (1.0-4.8); Lymphocytes % (A) 33 %; MCH 25.6 pg (25.0-35.0); MCHC 31.1 g/dL (31.0-37.0); MCV 82.1 fL (80.0-100.0); Mean Platelet Volume 6.4; Monocytes # (A) 0.5 k/uL (0-1.0); Monocytes % (A) 7 %; Neutrophils # (A) 4.2 k/uL (1.3-7.7); Neutrophils % (A) 55 %; Platelet Count 457 k/uL (150-450); RBC 4.67 m/uL (3.80-5.40); RDW 15.1 % (11.5-15.5); WBC 7.7 k/uL (3.8-10.6)
== END | disposition home or self-care (01) ==
LOC: LABPAT 12:11
PROVIDERS: ATTEND Obstetrics & Gynecology
DX: Z01.812 Encounter for preprocedural laboratory examination (principal)
CPT/HCPCS: 36415; 85025

== ENCOUNTER → 2018-12-18 | Day surgery (SDC) | payer BC, OTHER ==
[2018-12-16 14:16] VITALS: BMI 33.3
--- NOTE | 2018-12-17 20:20 | P.HPOB ---
History of Present Illness H&P Date: 12/17/18 Chief Complaint: Family planning This is a 23-year-old female 2 para 2 who presents for laparoscopic bilateral tubal ligation for family planning purposes. She is currently on control pills but would like to stop them due to breakthrough bleeding. Obstetrical history: . History of 2 vaginal deliveries. Gynecologic history: No history of sexually transmitted diseases. Social history: She is single and is currently using control pills and condoms for control. She currently works at [employer]. Review of Systems Constitutional: Reports weight gain, Denies chills, Denies fever Eyes: bilateral blurred vision, denies pain Ears, nose, mouth and throat: Reports headache, Denies sore throat Cardiovascular: Denies chest pain, Denies shortness of breath Respiratory: Denies cough Gastrointestinal: Denies abdominal pain, Denies diarrhea, Denies nausea, Denies vomiting Genitourinary: Reports pelvic pain Menstruation: Reports menses variable Musculoskeletal: Reports low back pain, Reports myalgias Integumentary: Denies pruritus, Denies rash Neurological: Denies numbness, Denies weakness Psychiatric: Reports anxiety, Reports depression, Reports difficulty concentrating, Reports insomnia, Reports irritability Past Medical History Past Medical History: Asthma, Thyroid Disorder Additional Past Medical History / Comment(s): PCOS, hypogylcemia. History of Any Multi-Drug Resistant Organisms: None Reported Past Surgical History: No Surgical Hx Reported Additional Past Surgical History / Comment(s): [place] teeth extracted. Past Anesthesia/Blood Transfusion Reactions: No Reported Reaction Past Psychological History: Anxiety, Depression Smoking Status: Former smoker Past Alcohol Use History: Rare Past Drug Use History: None Reported - Past Family History Mother History Unknown: Yes Family Medical History: Cancer Additional Family Medical History / Comment(s): Had tumor on Fallopian tube. Medications and Allergies Home Medications Medication Instructions Recorded Confirmed Type Control Pill 1 tab PO DAILY 12/16/18 12/16/18 History Allergies Allergy/AdvReac Type Severity Reaction Status Date / Time Influenza Virus Vaccines Allergy Nausea & Verified 12/16/18 14:04 Vomiting Penicillins Allergy Rash/Hives Verified 12/16/18 14:04 Sulfa (Sulfonamide Allergy Rash/Hives Verified 12/16/18 14:04 Antibiotics) Exam Osteopathic Statement: *. No significant issues noted on an osteopathic structural exam other than those noted in the History and Physical/Consult. HEENT: Within normal limits Heart: Regular rate and rhythm Lungs: Clear to auscultation bilaterally Abdomen: Soft, nontender Pelvic exam: Uterus is retroverted, nontender, with no adnexal masses palpated. Extremities: Negative Homans Assessment and Plan (1) Family planning Status: Acute Code(s): Z30.09 - ENCOUNTER FOR OT GENERAL CNSL AND ADVICE ON CONTRACEPTION SNOMED Code(s): 142014670 Plan: Proceed with laparoscopic bilateral tubal ligation via fulguration. I have discussed the risks, benefits, and alternative therapies for the above- mentioned procedure and for both sedation/anesthesia as well as necessary blood products administration, if indicated, as they pertain to this patient. The patient has indicated her understanding and acceptance of the risks and procedures discussed.
[~2018-12-18] MED LIST: BUPIVACAINE (PF) 0.5% 30 ML VIAL SQ ONE; DEXAMETHASONE SOD PHOSPHATE 10 MG/ML 1 ML VIAL IV ONE; GLYCOPYRROLATE 0.2 MG/ML 2 ML VIAL ONE; HYDROcodone/APAP 5-325MG 1 EACH TAB PO ONE; HYDROmorphone 0.5 MG/0.5 ML SYRINGE IVP PRN; KETOROLAC 30 MG/ML 1 ML VIAL IVP SCH; LACTATED RINGERS 1,000 ML IV SCH; LIDOCAINE 1% 20 ML VIAL (10MG/ML) FOR IV START INTRADERMA PRN; LIDOCAINE 1% INJ 10MG/ML (20 ML MDV) ONE; MIDAZOLAM 2 MG/2 ML VIAL ONE; NEOSTIGMINE 1 MG/ML 10 ML VIAL ONE; ONDANSETRON 4 MG/2 ML VIAL IVP ONE; ONDANSETRON 4 MG/2 ML VIAL IVP PRN; PROPOFOL 10 MG/ML 20 ML VIAL IV ONE; Pre Op ABX Message 1 EACH MISC MISCELLANE ONE; ROCURONIUM BROMIDE 10 MG/ML 10 ML VIAL IV ONE; SCOPOLAMINE 1.5MG/72HR PATCH TRANSDERM ONE; SUCCINYLCHOLINE CHLORIDE 100 MG/5 ML SYR IV ONE; diphenhydrAMINE 50 MG/ML 1 ML VIAL IVP ONE; fentaNYL (PF) 50 MCG/ML 2 ML AMP ONE
[2018-12-18 07:06] LABS: Glucose,Whole Blood 85 mg/dL (75-99)
--- NOTE | 2018-12-18 08:17 | P.OP ---
Date of Procedure: 12/18/18 Preoperative Diagnosis: Family planning Postoperative Diagnosis: Same Procedure(s) Performed: Laparoscopic bilateral tubal ligation via fulguration Anesthesia: SREEKANTH Surgeon: Nasra Killian Estimated Blood Loss (ml): 10 Pathology: none sent Condition: stable Disposition: same day Indications for Procedure: This is a 23-year-old female 2 para 2 who presents for laparoscopic bilateral tubal ligation for family planning purposes. She is currently on control pills but would like to stop them due to breakthrough bleeding. Operative Findings: Uterus is retroverted and sounded to 9 cm. Normal uterus tubes and ovaries are noted. Appendix is visualized and appears normal. The gallbladder is visualized and appears slightly enlarged. Description of Procedure: The patient is taken to the operating room where she is placed in the dorsal lithotomy position. She is prepped and draped in the normal sterile fashion. Examination is performed under anesthesia. Uterus is found to be in a retroverted position. No adnexal masses were palpated. Next a bivalve speculum was placed in the patient's vagina. A single-tooth tenaculum was used to grasp the anterior lip of the cervix. The uterus was sounded to 9 cm. The kroner uterine manipulator was then inserted through the cervix and the balloon was inflated. The single-tooth tenaculum is removed speculum was removed gloves were changed and attention was turned to the abdomen. The infraumbilical fold was grasped in transverse fashion with 2 Allis clamps. A small transverse incision was made with a scalpel. A hemostat was used to carry the incision down to the underlying layer of fascia. A towel clip was placed above the umbilicus for retraction. A 11 mm disposable bladeless trocar was then inserted into the peritoneal cavity under direct visualization. Once inside, pneumoperitoneum was achieved with CO2 gas. The insert was removed and the camera was placed. Intraperitoneal placement was confirmed. No bleeding was noted. Next the patient was placed in Trendelenburg position. A small stab incision was made suprapubically and a 5 mm disposable bladeless trocar was inserted into the peritoneal cavity under direct visualization. Once inside pelvic contents were inspected. Next a bipolar Kleppinger instrument was placed through the inferior trocar and the midportion of each tube was brought away from other structures and completely fulgurated on approximate 2-3 cm segment of each tube. Excellent hemostasis was noted. A picture was taken. Pneumoperitoneum was released after the inferior trocar was removed under direct visualization. The upper trocar was then removed. The fascial incision was closed with 0 Vicryl suture in interrupted [id number] stitch. The skin incisions were then closed with 4-0 Vicryl suture in a subcuticular fashion. Incision sites were then injected with half percent Marcaine. Approximately 6 mL were used. Next the kroner uterine manipulator was removed. Minimal bleeding was noted. All sponge and needle counts are correct. The patient is then taken to recovery room in stable condition.
[2018-12-18 08:42] VITALS: TEMP 97.2
[2018-12-18 10:15] VITALS: RESP 18
[2018-12-18 10:39] VITALS: BP 122/74; PULSE 78
== END | disposition home or self-care (01) ==
LOC: OR 06:21
PROVIDERS: ATTEND Obstetrics & Gynecology
DX: Z30.2 Encounter for sterilization (principal); N85.4 Malposition of uterus; E28.2 Polycystic ovarian syndrome; J45.909 Unspecified asthma, uncomplicated; E07.9 Disorder of thyroid, unspecified; E16.2 Hypoglycemia, unspecified; F41.9 Anxiety disorder, unspecified; F32.9 Major depressive disorder, single episode, unspecified; Z87.891 Personal history of nicotine dependence; R63.5 Abnormal weight gain; Z68.33 Body mass index [BMI] 33.0-33.9, adult; Z79.3 Long term (current) use of hormonal contraceptives; Z79.51 Long term (current) use of inhaled steroids; Z88.0 Allergy status to penicillin; Z88.2 Allergy status to sulfonamides; Z88.7 Allergy status to serum and vaccine
CPT/HCPCS: 81025; 58670; J2250; J1200; J1100; J2710; J2405; J2001; J3010; J1885; J0330; J2704; J1170

== ENCOUNTER 2019-06-15 06:22 | Day surgery (SDC) | payer BC, OTHER ==
[2019-06-05 13:04] VITALS: BMI 34.9
--- NOTE | 2019-06-14 17:19 | P.HPOB ---
History of Present Illness H&P Date: 06/14/19 Chief Complaint: Menorrhagia with irregular cycle This is a 23 y.o. female, gravida2, para 2, who presents for dilatation and curettage with hysteroscopy and Novasure endometrial ablation for menorrhagia with irregular cycle. She has had a tubal ligation. She complains of intermenstrual bleeding and she is bleeding every 2 weeks despite control pills. She wants surgical treatment to control her menses. Pelvic ultrasound showed uterus measuring 7.5 x 6.1 x 3.6 cm with endometrial thickness of 6 mm. Both ovaries were normal sized. OB History: . 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 No history of STDs. Social Hx: Single. Works at [employer]. Review of Systems Constitutional: Reports fatigue, Reports weight gain Eyes: bilateral blurred vision Ears, nose, mouth and throat: Denies sore throat Cardiovascular: Reports shortness of breath, Denies chest pain Respiratory: Denies cough Gastrointestinal: Denies abdominal pain, Denies diarrhea, Denies nausea, Denies vomiting Genitourinary: Reports pelvic pain Musculoskeletal: Reports low back pain Integumentary: Denies pruritus, Denies rash Neurological: Denies numbness, Denies weakness Endocrine: Reports weight change 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. HEAVY MENSES WITH LARGE CLOTS. PCOS History of Any Multi-Drug Resistant Organisms: None Reported Past Surgical History: Tubal Ligation Additional Past Surgical History / Comment(s): wisdom teeth Past Anesthesia/Blood Transfusion Reactions: No Reported Reaction Past Psychological History: No Psychological Hx Reported Smoking Status: Never smoker Past Alcohol Use History: Occasional Past Drug Use History: None Reported - Past Family History Mother History Unknown: Yes Family Medical History: Cancer Additional Family Medical History / Comment(s): Had tumor on Fallopian tube. Medications and Allergies Home Medications Medication Instructions Recorded Confirmed Type Control Pill 1 tab PO DAILY 12/16/18 06/05/19 History Allergies Allergy/AdvReac Type Severity Reaction Status Date / Time Influenza Virus Vaccines Allergy Nausea & Verified 06/15/19 06:48 Vomiting Penicillins Allergy Rash/Hives Verified 06/15/19 06:48 Sulfa (Sulfonamide Allergy Rash/Hives Verified 06/15/19 06:48 Antibiotics) Exam Osteopathic Statement: *. No significant issues noted on an osteopathic structural exam other than those noted in the History and Physical/Consult. HEENT: within normal limits Heart: regular rate and rhythm Lungs: clear to auscultation bilaterally Abdomen: soft, non-tender Pelvic: uterus retroverted, non-tender, no adnexal masses Extremities: neg Homans Assessment and Plan (1) Menorrhagia with irregular cycle Current Visit: No Status: Acute Code(s): N92.1 - EXCESSIVE AND FREQUENT MENSTRUATION WITH IRREGULAR CYCLE SNOMED Code(s): 171388216 Plan: Proceed with dilatation and curettage with hysteroscopy and Novasure ablation. I have discussed the risks, benefits, and alternative therapies for the above- mentioned procedure and for both sedation/anesthesia as well as necessary blood products administration, if indicated, as they pertain to this patient. The patient has indicated her understanding and acceptance of the risks and procedures discussed.
[~2019-06-15 06:22] MED LIST changes: -BUPIVACAINE (PF) 0.5% 30 ML VIAL SQ ONE; -GLYCOPYRROLATE 0.2 MG/ML 2 ML VIAL ONE; -HYDROcodone/APAP 5-325MG 1 EACH TAB PO ONE; -HYDROmorphone 0.5 MG/0.5 ML SYRINGE IVP PRN; -KETOROLAC 30 MG/ML 1 ML VIAL IVP SCH; -LIDOCAINE 1% INJ 10MG/ML (20 ML MDV) ONE; +MIDAZOLAM 2 MG/2 ML VIAL IV PRN; -MIDAZOLAM 2 MG/2 ML VIAL ONE; -NEOSTIGMINE 1 MG/ML 10 ML VIAL ONE; -ONDANSETRON 4 MG/2 ML VIAL IVP ONE; -ONDANSETRON 4 MG/2 ML VIAL IVP PRN; -PROPOFOL 10 MG/ML 20 ML VIAL IV ONE; -ROCURONIUM BROMIDE 10 MG/ML 10 ML VIAL IV ONE; -SCOPOLAMINE 1.5MG/72HR PATCH TRANSDERM ONE; -SUCCINYLCHOLINE CHLORIDE 100 MG/5 ML SYR IV ONE; -diphenhydrAMINE 50 MG/ML 1 ML VIAL IVP ONE; +fentaNYL (PF) 50 MCG/ML 2 ML AMP IV PRN; -fentaNYL (PF) 50 MCG/ML 2 ML AMP ONE
[2019-06-15] MEDS ORDERED: DEXAMETHASONE SOD PHOSPHATE 10 MG/ML 1 ML VIAL IV ONE (07:08)
[2019-06-15] MEDS ORDERED: ONDANSETRON 4 MG/2 ML VIAL IVP ONE (07:09)
[2019-06-15] MEDS ORDERED: MIDAZOLAM 2 MG/2 ML VIAL ONE (07:39)
[2019-06-15] MEDS ORDERED: LIDOCAINE 1% INJ 10MG/ML (20 ML MDV) ONE (07:39)
[2019-06-15] MEDS ORDERED: fentaNYL (PF) 50 MCG/ML 2 ML AMP ONE (07:39)
[2019-06-15] MEDS ORDERED: PROPOFOL 10 MG/ML 20 ML VIAL IV ONE (07:39)
[2019-06-15] MEDS ORDERED: KETOROLAC 30 MG/ML 1 ML VIAL ONE (07:39)
[2019-06-15] MEDS ORDERED: LACTATED RINGERS 1,000 ML IV ONE (08:11)
--- NOTE | 2019-06-15 08:15 | P.OP ---
Date of Procedure: 06/15/19 Preoperative Diagnosis: Menorrhagia with irregular cycle Postoperative Diagnosis: Same Uterine perforation Procedure(s) Performed: Dilation and curettage with hysteroscopy with attempted and failed NovaSure endometrial ablation Anesthesia: other (LMA general) Surgeon: Nasra Killian Estimated Blood Loss (ml): 10 Pathology: other (Endometrial curettings) Condition: stable Disposition: same day Indications for Procedure: This is a 23 y.o. female, gravida2, para 2, who presents for dilatation and curettage with hysteroscopy and Novasure endometrial ablation for menorrhagia with irregular cycle. She has had a tubal ligation. She complains of intermenstrual bleeding and she is bleeding every 2 weeks despite control pills. She wants surgical treatment to control her menses. Pelvic ultrasound showed uterus measuring 7.5 x 6.1 x 3.6 cm with endometrial thickness of 6 mm. Both ovaries were normal sized. Operative Findings: Uterus is retroverted and sounded to 8 cm. Cervix is sounded to 3 cm. Upon hysteroscopy, both tubal ostia are visualized. No polyps or fibroids are visualized. Relatively thin endometrium is noted. Minimal to moderate endometrial curettings are noted. Description of Procedure: The patient is taken to the operating room. She is placed in the dorsal lithotomy position after general anesthesia was given. She is prepped and draped in the normal sterile fashion. Bladder is drained with a catheter and then removed. Pelvic exam is performed under anesthesia. Uterus is found to be retroverted with no adnexal masses. She is placed in slight Trendelenburg position. A right angle retractor is used to visualize the cervix. The anterior lip of the cervix is grasped with a single-tooth tenaculum. Cervix is sounded to 3 cm. Uterus is sounded to 8 cm. Cervix is gently dilated with White dilators until a hysteroscope could be passed. Hysteroscopy is performed using normal saline. The above noted findings are noted. Next a polyp forceps is introduced. A very minimal amount of tissue was obtained. Next medium-sized size sharp curette was placed. A minimal to moderate amount of endometrial curettings were obtained. Next NovaSure array was inserted into the endometrial cavity. Length was set at 5 cm and width was determined to be 4.2 cm. cavity assessment would not pass despite 2 attempts. At this point the hysteroscopy was then repeated. Upon hysteroscopy a small uterine perforation is noted on the posterior uterine wall. No active bleeding is noted. The ablation portion of the procedure is abandoned at this time. All instruments are removed from the vagina. Pressure was applied to the tenaculum site after removing the single-tooth tenaculum. Once the ring forcep was removed from the site, no active bleeding is noted. Estimated blood loss is approximately 10 mL's. All instruments are removed from the vagina. Pelvic exam is again performed under anesthesia and uterus is retroverted with no adnexal masses palpated. No active bleeding is again noted. Patient is then taken to recovery room in stable condition.
[2019-06-15] MEDS: HYDROmorphone 0.5 MG/0.5 ML SYRINGE IVP ONE ×2 (08:33→09:03)
[2019-06-15 08:41] VITALS: TEMP 97.5
[2019-06-15 09:20] VITALS: PULSE 110
[2019-06-15 09:39] VITALS: BP 133/89; RESP 20
== END 2019-06-15 09:46 | disposition home or self-care (01) ==
LOC: OR 06:22
PROVIDERS: ATTEND Obstetrics & Gynecology
DX: N84.0 Polyp of corpus uteri (principal); J45.909 Unspecified asthma, uncomplicated; H53.8 Other visual disturbances; E28.2 Polycystic ovarian syndrome; E16.2 Hypoglycemia, unspecified; Z98.51 Tubal ligation status; Z79.3 Long term (current) use of hormonal contraceptives; Z88.0 Allergy status to penicillin; Z88.2 Allergy status to sulfonamides; Z88.7 Allergy status to serum and vaccine
CPT/HCPCS: 81025; 88305; 58558; J2250; J1100; J2405; J2001; J3010; J1885; J2704; J1170

== ENCOUNTER → 2019-07-11 | Outpatient (CLI) | payer BC, OTHER ==
[2019-07-11 10:10] LABS: Basophils # (A) 0.1 k/uL (0-0.2); Basophils % (A) 2 %; Eosinophils # (A) 0.4 k/uL (0-0.7); Eosinophils % (A) 5 %; HCT 41.2 % (34.0-46.0); Lymphocytes # (A) 2.6 k/uL (1.0-4.8); Lymphocytes % (A) 38 %; MCH 27.4 pg (25.0-35.0); MCHC 31.5 g/dL (31.0-37.0); MCV 87.2 fL (80.0-100.0); Monocytes # (A) 0.4 k/uL (0-1.0); Monocytes % (A) 6 %; Neutrophils # (A) 3.1 k/uL (1.3-7.7); Neutrophils % (A) 46 %; Platelet Count 419 k/uL (150-450); RBC 4.73 m/uL (3.80-5.40); WBC 6.7 k/uL (3.8-10.6)
[2019-07-11 10:28] LABS: African American GFR (CKD) >90 (>60 ml/min/1.73 sqM); Anion Gap 8 mmol/L; Blood Urea Nitrogen 8 mg/dL (7-17); Calcium 9.1 mg/dL (8.4-10.2); Carbon Dioxide 27 mmol/L (22-30); Chloride 104 mmol/L (98-107); Glucose 96 mg/dL (74-99); Non-African American GFR(CKD) >90 (>60 ml/min/1.73 sqM); Potassium 4.3 mmol/L (3.5-5.1); Sodium 139 mmol/L (137-145)
== END | disposition home or self-care (01) ==
LOC: LABPAT 08:57
PROVIDERS: ATTEND Obstetrics & Gynecology
DX: Z01.812 Encounter for preprocedural laboratory examination (principal)
CPT/HCPCS: 36415; 80048; 85025

== ENCOUNTER 2019-07-20 05:53 | Inpatient (IN) | payer BC, OTHER ==
[2019-07-15 15:14] VITALS: BMI 33.9
--- NOTE | 2019-07-19 17:02 | P.HPOB ---
History of Present Illness H&P Date: 07/19/19 Chief Complaint: Uterine prolapse, menorrhagia This is a 23 y,o., female, 2, para 2, who presents for total vaginal hysterectomy, possible total abdominal hysterectomy, due to uterine prolapse with menorrhagia with irregular cycle. Endometrial ablation was attempted and failed due to uterine perforation. She does not wish to try again. She does have some uterine prolapse and would like to proceed with vaginal hysterecomy. OB Hx: . History of 2 vaginal deliveries. 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 No history of STDs. Social Hx: Singles. Works at [employer] Review of Systems Constitutional: Reports fatigue, Reports weight gain Eyes: denies blurred vision, denies pain Ears, nose, mouth and throat: Reports headache, Denies sore throat Cardiovascular: Reports dyspnea on exertion, Denies chest pain, Denies shortness of breath Respiratory: Denies cough Gastrointestinal: Denies abdominal pain, Denies diarrhea, Denies nausea, Denies vomiting Genitourinary: Reports abnormal vaginal bleeding, Reports menorrhagia, Reports pelvic pain, Reports prolapse symptoms Menstruation: Reports cycle variable, Reports period heavy Musculoskeletal: Reports low back pain, Reports myalgias Integumentary: Denies pruritus, Denies rash Neurological: Denies numbness, Denies weakness Psychiatric: Reports anxiety, Reports depression, Reports difficulty concentrating, Reports insomnia, Reports irritability Past Medical History Past Medical History: Asthma, Thyroid Disorder Additional Past Medical History / Comment(s): hypogylcemia; polycystic ovarian disease History of Any Multi-Drug Resistant Organisms: None Reported Past Surgical History: Tubal Ligation Additional Past Surgical History / Comment(s): wisdom teeth, hysteroscopy with D&C Past Anesthesia/Blood Transfusion Reactions: No Reported Reaction Past Psychological History: Anxiety, Depression Smoking Status: Former smoker Past Alcohol Use History: Occasional Past Drug Use History: None Reported - Past Family History Mother History Unknown: Yes Family Medical History: Cancer Additional Family Medical History / Comment(s): Had tumor on Fallopian tube. Medications and Allergies Home Medications Medication Instructions Recorded Confirmed Type Albuterol Inhaler [Ventolin Hfa 1 - 2 puff INHALATION RT-Q6H PRN 07/15/19 07/15/19 History Inhaler] Allergies Allergy/AdvReac Type Severity Reaction Status Date / Time Influenza Virus Vaccines Allergy Nausea & Verified 07/15/19 15:08 Vomiting Penicillins Allergy Rash/Hives Verified 07/15/19 15:08 Sulfa (Sulfonamide Allergy Rash/Hives Verified 07/15/19 15:08 Antibiotics) Exam Osteopathic Statement: *. No significant issues noted on an osteopathic structural exam other than those noted in the History and Physical/Consult. HEENT: within normal limits Heart: regular rate and rhythm Lungs: clear to auscultation Abdomen: soft, non-tender Pelvic: uterus retroverted, small, non-tender, with 1st degreee uterine prolapse, no adnexal masses or tenderness Extremities: neg. Homans. Assessment and Plan (1) Uterine prolapse Current Visit: No Status: Acute Code(s): N81.4 - UTEROVAGINAL PROLAPSE, UNSPECIFIED SNOMED Code(s): 74643616 (2) Menorrhagia with irregular cycle Current Visit: No Status: Acute Code(s): N92.1 - EXCESSIVE AND FREQUENT MENSTRUATION WITH IRREGULAR CYCLE SNOMED Code(s): 072855450 Plan: Proceed with total vaginal hysterectomy, possible total abdominal hysterectomy. I have discussed the risks, benefits, and alternative therapies for the above- mentioned procedure and for both sedation/anesthesia as well as necessary blood products administration, if indicated, as they pertain to this patient. The patient has indicated her understanding and acceptance of the risks and procedures discussed.
[2019-07-20] MEDS ORDERED: LACTATED RINGERS 1,000 ML IV SCH ×2 (06:03→11:00)
[2019-07-20] MEDS ORDERED: SCOPOLAMINE 1.5MG/72HR PATCH TRANSDERM ONE (06:03)
[2019-07-20] MEDS ORDERED: MIDAZOLAM 2 MG/2 ML VIAL IV PRN (06:03)
[2019-07-20] MEDS ORDERED: fentaNYL (PF) 50 MCG/ML 2 ML AMP IV PRN (06:03)
[2019-07-20] MEDS ORDERED: DEXAMETHASONE SOD PHOSPHATE 10 MG/ML 1 ML VIAL IV ONE (06:03)
[2019-07-20] MEDS ORDERED: ONDANSETRON 4 MG/2 ML VIAL IVP ONE (06:03)
[2019-07-20] MEDS ORDERED: LACTATED RINGERS 1,000 ML IV ONE ×3 (06:15→08:31)
[2019-07-20 06:25] LABS: Glucose,Whole Blood 86 mg/dL (75-99)
[2019-07-20] MEDS ORDERED: LIDOCAINE 1% 20 ML VIAL (10MG/ML) FOR IV START INTRADERMA ONE (06:35)
[2019-07-20] MEDS ORDERED: diphenhydrAMINE 50 MG/ML 1 ML VIAL IVP ONE ×2 (07:10→07:25)
[2019-07-20] MEDS ORDERED: PROPOFOL 10 MG/ML 20 ML VIAL IV ONE (07:33)
[2019-07-20] MEDS ORDERED: diphenhydrAMINE 50 MG/ML 1 ML VIAL ONE (07:33)
[2019-07-20] MEDS ORDERED: fentaNYL (PF) 50 MCG/ML 2 ML AMP ONE (07:33)
[2019-07-20] MEDS ORDERED: MIDAZOLAM 2 MG/2 ML VIAL ONE (07:33)
[2019-07-20] MEDS ORDERED: KETOROLAC 30 MG/ML 1 ML VIAL ONE (07:33)
[2019-07-20] MEDS ORDERED: MORPHINE SULFATE (PF) 0.3 MG/0.3 ML SYR ONE (07:33)
[2019-07-20] MEDS ORDERED: LIDOCAINE 1% INJ 10MG/ML (20 ML MDV) ONE (07:33)
[2019-07-20] MEDS ORDERED: EPINEPHrine 1 MG/ML 1 ML AMP IV ONE (08:00)
[2019-07-20] MEDS ORDERED: BACITRACIN 500 UNIT/GM OINT 28.4 GM TUBE TOPICAL ONE (08:06)
[2019-07-20] MEDS ORDERED: diphenhydrAMINE 50 MG/ML 1 ML VIAL IVP PRN ×2 (08:17→10:35)
[2019-07-20] MEDS ORDERED: KETOROLAC 30 MG/ML 1 ML VIAL IVP PRN ×2 (08:17→10:35)
[2019-07-20] MEDS ORDERED: NALBUPHINE 10 MG/ML (1 ML AMP) IV PRN (08:17)
[2019-07-20] MEDS ORDERED: NALOXONE 0.4 MG/ML 1 ML VIAL IV PRN (08:17)
--- NOTE | 2019-07-20 08:36 | P.OP ---
Date of Procedure: 07/20/19 Preoperative Diagnosis: Menorrhagia with irregular cycle Uterine prolapse Postoperative Diagnosis: Same Procedure(s) Performed: Total vaginal hysterectomy Anesthesia: spinal (Duramorph), other (LMA general) Surgeon: Nasra Killian Senior Chemist #1: Leslie Wright Estimated Blood Loss (ml): 100 Pathology: other (Uterus with cervix) Condition: stable Disposition: floor Indications for Procedure: This is a 23 y,o., female, 2, para 2, who presents for total vaginal hysterectomy, possible total abdominal hysterectomy, due to uterine prolapse with menorrhagia with irregular cycle. Endometrial ablation was attempted and failed due to uterine perforation. She does not wish to try again. She does have some uterine prolapse and would like to proceed with vaginal hysterecomy. Operative Findings: Uterus has grade 1 prolapse. Uterus is retroverted and fairly small. Normal ovaries are noted bilaterally. Both tubes are also visualized and appeared normal. Description of Procedure: The patient is taken the operating room where she is placed in the dorsal lithotomy position. She is prepped and draped in the normal sterile fashion. Next a weighted speculum was placed in the patient's vagina and a right angle retractor was used to visualize the cervix. The anterior lip of the cervix is grasped with a single-tooth tenaculum. Next the cervix was circumferentially injected with one amp of epinephrine to 150 mL of normal saline. Next the cervix was circumscribed with a scalpel. The vaginal mucosa was pushed away from the cervix with a sponge. Next the uterosacral ligaments are clamped on either side with a Thony clamp, cut with Quinonez scissors, and then sutured with 0 Vicryl suture in a Thony transfixion stitch and then held on either side with a straight hemostat. Next the posterior peritoneal reflection was identified and entered sharply with Quinonez scissors. The edges of the vaginal mucosa was then tagged with 0 Vicryl suture and held with a curved hemostat for identification. Next a longbilled weighted speculum was placed through the posterior peritoneal reflection. Next the cardinal ligaments were clamped on either side with Thony clamps, cut with Quinonez scissors, and then sutured with 0 Vicryl suture in Thony transfixion stitches and cut. Next the vesicouterine peritoneum reflection is identified and entered sharply with Metzenbaum scissors. A right angle bladder retractor is then used to retract the bladder. The uterine arteries are clamped on either side with Thony clamps, cut with Quinonez scissors, and then sutured with 0 Vicryl suture in Thony transfixion stitches. The round ligament is also clamped on either side with a Thony clamp, cut with Quinonez scissors, and sutured with 0 Vicryl suture in Thony transfixion stitches. Next the uterine ovarian ligament and tube were clamped on either side with a Thony clamp, cut with Quinonez scissors, and then sutured with 0 Vicryl suture in a [id number] stitch, flashed, and then free tied with another suture of 0 Vicryl suture. These pedicles were held with a straight Suhail for identification. The uterus is removed from the field. Excellent hemostasis is noted. Next the peritoneum is closed with 0 Vicryl suture in a pursestring fashion incorporating all the held ligaments. Both ovaries were visualized prior to closing the cuff and appeared normal. Both tubes are visualized and appeared normal. Next the uterine ovarian ligaments are tied together in the middle and cut. Next the vaginal cuff mucosa is sutured with 0 Vicryl suture in a running locked fashion. The uterosacral ligaments were also tied together in the midline prior to completely closing the vaginal cuff. Excellent hemostasis is noted. The Gutierrez catheter is inserted and clear urine is noted. Next the vagina is packed with one-inch iodoform gauze with bacitracin ointment. All sponge and needle counts are correct and the patient is then taken to recovery room in stable condition.
[2019-07-20] MEDS: HYDROmorphone 0.5 MG/0.5 ML SYRINGE IVP PRN ×2 (09:20→11:45)
[2019-07-20] MEDS ORDERED: ONDANSETRON 4 MG/2 ML VIAL IVP PRN (10:35)
[2019-07-20] MEDS ORDERED: METOCLOPRAMIDE 5 MG/ML 2 ML VIAL IVP PRN (10:35)
[2019-07-20] MEDS ORDERED: ZOLPIDEM 5 MG TAB PO PRN (10:35)
[2019-07-20] MEDS ORDERED: IBUPROFEN 600 MG TAB PO PRN (10:35)
[2019-07-20] MEDS ORDERED: ALBUTEROL NEBULIZED 2.5 MG/3 ML INHALATION PRN (10:35)
[2019-07-20] MEDS ORDERED: HYDROcodone/APAP 5-325MG 1 EACH TAB PO PRN (10:35)
[2019-07-20] MEDS ORDERED: HYDROcodone/APAP 7.5-325MG 1 EACH TAB PO PRN (10:35)
[2019-07-20] MEDS: SENNOSIDES-DOCUSATE SODIUM 1 EACH TAB PO SCH (16:15)
[2019-07-20] MEDS: SIMETHICONE 80 MG CHEWABLE PO PRN (20:35)
[2019-07-21] MEDS: SENNOSIDES-DOCUSATE SODIUM 1 EACH TAB PO SCH (00:31)
--- NOTE | 2019-07-21 06:58 | P.PN ---
Progress Note - Text Progress Note Date: 07/21/19 Postoperative day 1 status post total vaginal hysterectomy under General anest hesia, and intrathecal morphine given for postoperative analgesia, patient doing well, there is no anesthesia related complications, Patient had no headache, vital signs stable , Assessment and plan= postop day 1 status post total vaginal hysterectomy, doing well there is no anesthesia related complication.
[2019-07-21] MEDS ORDERED: ACETAMINOPHEN TAB 325 MG TAB PO PRN (07:53)
[2019-07-21 08:17] LABS: Basophils % (A) 0 %; Eosinophils # (A) 0.1 k/uL (0-0.7); Eosinophils % (A) 1 %; HCT 26.7 % (34.0-46.0); Lymphocytes # (A) 3.4 k/uL (1.0-4.8); Lymphocytes % (A) 31 %; MCH 27.3 pg (25.0-35.0); MCHC 32.1 g/dL (31.0-37.0); MCV 85.1 fL (80.0-100.0); Monocytes # (A) 0.7 k/uL (0-1.0); Monocytes % (A) 7 %; Neutrophils # (A) 6.3 k/uL (1.3-7.7); Neutrophils % (A) 58 %; Platelet Count 365 k/uL (150-450); RBC 3.14 m/uL (3.80-5.40); RDW 13.6 % (11.5-15.5); WBC 10.7 k/uL (3.8-10.6)
[2019-07-21 08:22] LABS: HGB 8.6 gm/dL (11.4-16.0)
[2019-07-21 08:23] VITALS: BP 119/61; PULSE 103; RESP 16; TEMP 97.7
[2019-07-21] MEDS: SIMETHICONE 80 MG CHEWABLE PO PRN (09:56)
--- NOTE | 2019-07-21 10:02 | P.DS ---
Providers Date of admission: 07/20/19 05:53 Expected date of discharge: 07/21/19 Attending physician: Nasra Killian Primary care physician: Nohemi Soto - Discharge Diagnosis(es) (1) Uterine prolapse Current Visit: No Status: Acute (2) Menorrhagia with irregular cycle Current Visit: No Status: Acute Hospital Course: This is a 23-year-old female who underwent a total vaginal hysterectomy on 07/20/2019. Postoperatively she has done well. Bleeding has been minimal. She is urinating. She is passing a small amount of flatus but no bowel movement yet. Pain is fairly well controlled. She thinks she would like to go home later today. Vital signs are stable. Abdomen is soft with positive bowel sounds 4. Gianna-pad shows no bleeding. Extremities show negative Homans. Impression is status post total vaginal hysterectomy postoperative day #1. Plan is to discharge home today. Routine postoperative instructions are given. She is advised to follow up in the office in 1 week for a postoperative check. She is advised to call the office if she has any further questions or concerns prior to her appointment time. She will be given a prescription for ibuprofen and [place]. She has been counseled regarding narcotic use and has signed a opioid start taking form. Procedures: Total vaginal hysterectomy on 07/20/2019 Patient Condition at Discharge: Stable Plan - Discharge Summary Discharge Rx Participant: Yes New Discharge Prescriptions: New Ibuprofen [Motrin] 600 mg PO Q6HR PRN #60 tab PRN Reason: Mild Discomfort HYDROcodone/APAP 5-325MG [[place] 5-325] 1 each PO Q6HR PRN #18 tab PRN Reason: MODERATE Pain No Action Albuterol Inhaler [Ventolin Hfa Inhaler] 1 - 2 puff INHALATION RT-Q6H PRN PRN Reason: Dyspnea Discharge Medication List Albuterol Inhaler [Ventolin Hfa Inhaler] 1 - 2 puff INHALATION RT-Q6H PRN 07/15/19 [History] HYDROcodone/APAP 5-325MG [[place] 5-325] 1 each PO Q6HR PRN #18 tab 07/21/19 [Rx] Ibuprofen [Motrin] 600 mg PO Q6HR PRN #60 tab 07/21/19 [Rx] Follow up Appointment(s)/Referral(s): Killian,Nasra, DO [Doctor of Osteopathic Medicine] - 1 Week Activity/Diet/Wound Care/Special Instructions: Activity as tolerated with no lifting. Diet as tolerated. May shower, but no tub baths for 1 week. No intercourse. May drive as long as not on narcotic pain medication. Discharge Disposition: HOME SELF-CARE
== END 2019-07-21 13:05 | disposition home or self-care (01) | DRG 743 ==
LOC: 2ORMAIN 05:53 → 4FBP 08:53
PROVIDERS: ADMIT Obstetrics & Gynecology; ATTEND Obstetrics & Gynecology
PROC: 0UT97ZZ Resection of Uterus, Via Natural or Artificial Opening (ICD-10-PCS; principal; 2019-07-20 07:30)
PROC: 0UTC7ZZ Resection of Cervix, Via Natural or Artificial Opening (ICD-10-PCS; principal; 2019-07-20 07:30)
DX: N81.2 Incomplete uterovaginal prolapse (principal); E07.9 Disorder of thyroid, unspecified; N92.0 Excessive and frequent menstruation with regular cycle; E28.2 Polycystic ovarian syndrome; J45.909 Unspecified asthma, uncomplicated; Z79.899 Other long term (current) drug therapy; Z87.891 Personal history of nicotine dependence; Z98.51 Tubal ligation status; Z98.890 Other specified postprocedural states; Z86.59 Personal history of other mental and behavioral disorders; Z88.0 Allergy status to penicillin; Z88.2 Allergy status to sulfonamides; Z88.7 Allergy status to serum and vaccine; Z84.2 Family history of other diseases of the genitourinary system
CPT/HCPCS: 81025; 85025; 86850; 86900; 86901; 88305

== ENCOUNTER → 2019-07-31 | Outpatient (CLI) | payer BC, OTHER ==
--- NOTE | 2019-07-31 09:28 | US ---
EXAMINATION TYPE: US pelvis complete transvag DATE OF EXAM: 07/31/2019 COMPARISON: US CLINICAL HISTORY: R10.2 PELVIC PAIN. 10 days post hysterectomy. TECHNIQUE: Transvaginal (TV) and Transabdominal (TA) . Transabdominal sonographic images of the pel vis were acquired. Transvaginal sonographic images were medically necessary to better assess the fol lowing anatomy: ovaries. Permission for transvaginal sonography was obtained from the referring surge on, Dr. Kililan, by the technologist. Date of LMP: Hysterectomy 10 days ago EXAM MEASUREMENTS: Uterus: Surgically absent Endometrial Stripe: Surgically absent Right Ovary: 3.6 x 1.7 x 3.6 cm Left Ovary: 3.2 x 4.6 x 2.2 cm 1. Uterus: Surgically absent. Vaginal cuff region appears normal. 2. Endometrium: Surgically absent 3. Right Ovary: peripheral follicles 4. Left Ovary: peripheral follicles Spectral, color and waveform doppler imaging shows good arterial and venous flow within the ovaries ; there is no evidence for ovarian torsion. 5. Bilateral Adnexa: 6.3 x 3.9 x 4.0cm complex collection with vascularity. 6. Posterior cul-de-sac: wnl Difficult to distinguish ovaries from surrounding complex collection. IMPRESSION: 1. There is a hypoechoic collection within the right adnexal region. Some peripheral vascularity may be present related to the adnexal regions. Consider a hematoma. Abscess formation should be considere d. Active bleeding is not identified.
== END | disposition home or self-care (01) ==
LOC: RADUSWWP 07:41
PROVIDERS: ATTEND Obstetrics & Gynecology
DX: N85.8 Other specified noninflammatory disorders of uterus (principal)
CPT/HCPCS: 76830; 76856

== ENCOUNTER 2020-11-06 12:37 | Emergency (ER) | payer BC, OTHER ==
[2020-11-06] MEDS ORDERED: LORazepam 2 MG/ML INJ IV STA (13:24)
[2020-11-06 13:55] LABS: Basophils # (A) 0.1 k/uL (0-0.2); Basophils % (A) 1 %; Eosinophils # (A) 0.3 k/uL (0-0.7); Eosinophils % (A) 4 %; HCT 41.2 % (34.0-46.0); HGB 13.7 gm/dL (11.4-16.0); Lymphocytes # (A) 2.5 k/uL (1.0-4.8); Lymphocytes % (A) 34 %; MCH 28.4 pg (25.0-35.0); MCHC 33.3 g/dL (31.0-37.0); MCV 85.4 fL (80.0-100.0); Mean Platelet Volume 6.8; Monocytes # (A) 0.4 k/uL (0-1.0); Monocytes % (A) 6 %; Neutrophils # (A) 3.9 k/uL (1.3-7.7); Neutrophils % (A) 54 %; Platelet Count 388 k/uL (150-450); RBC 4.82 m/uL (3.80-5.40); RDW 13.8 % (11.5-15.5); WBC 7.3 k/uL (3.8-10.6)
[2020-11-06 14:10] LABS: ALT 24 U/L (4-34); AST 29 U/L (14-36); African American GFR (CKD) >90 (>60 ml/min/1.73 sqM); Albumin 4.3 g/dL (3.5-5.0); Alkaline Phosphatase 76 U/L (38-126); Anion Gap 8 mmol/L; Blood Urea Nitrogen 7 mg/dL (7-17); Calcium 9.4 mg/dL (8.4-10.2); Carbon Dioxide 25 mmol/L (22-30); Chloride 108 mmol/L (98-107); Glucose 85 mg/dL (74-99); Lipase 102 U/L (23-300); Magnesium 2.3 mg/dL (1.6-2.3); Non-African American GFR(CKD) >90 (>60 ml/min/1.73 sqM); Potassium 3.9 mmol/L (3.5-5.1); Sodium 141 mmol/L (137-145); Total Bilirubin 0.5 mg/dL (0.2-1.3); Total Protein 7.4 g/dL (6.3-8.2)
[2020-11-06 14:24] LABS: D-Dimer 0.3 mg/L FEU (<0.60); INR 0.9 (<1.2); Partial Thromboplastin Time 23.8 sec (22.0-30.0); Prothrombin Time 10.2 sec (9.0-12.0)
--- NOTE | 2020-11-06 14:30 | XR ---
EXAMINATION TYPE: XR chest 2V DATE OF EXAM: 11/06/2020 COMPARISON: 12/28/2017 HISTORY: Chest pain TECHNIQUE: FINDINGS: Heart and mediastinum are normal. Lungs are clear. Diaphragm is normal. Bony thorax appears normal. IMPRESSION: Normal chest. No change.
--- NOTE | 2020-11-06 14:32 | ED ---
General Adult HPI <Sonu Chun - Last Filed: 11/06/20 14:56> - General Source: patient Mode of arrival: ambulatory Limitations: no limitations <Andrey Marcus - Last Filed: 11/06/20 16:26> - General Chief complaint: Chest Pain Stated complaint: Back Pain Time Seen by Provider: 11/06/20 13:11 - History of Present Illness Initial comments: 25-year-old female with history of anxiety presents to the emergency department with a chief complaint of back and chest pain. States her symptoms began yest erday where she developed pain in the area between her shoulder blades that she feels it is radiating to her chest. Patient reports also feeling shaky and continues to have rapid children. Patient reports she is very anxious as well. She denies any weakness in the extremities. Denies any nausea vomiting or diarrhea. Denies any significant chest pain or shortness of breath. Denies headaches, lightheadedness, dizziness, visual changes. (Andrey Marcus) - Related Data Home Medications Medication Instructions Recorded Confirmed Albuterol Inhaler (Mhu) [Ventolin 1 - 2 puff INHALATION RT-Q6H PRN 07/15/19 07/15/19 Hfa Inhaler] Previous Rx's Medication Instructions Recorded HYDROcodone/APAP 5-325MG [[place] 1 each PO Q6HR PRN #18 tab 07/21/19 5-325] Ibuprofen [Motrin] 600 mg PO Q6HR PRN #60 tab 07/21/19 Allergies Allergy/AdvReac Type Severity Reaction Status Date / Time Influenza Virus Vaccines Allergy Nausea & Verified 07/15/19 15:08 Vomiting Penicillins Allergy Rash/Hives Verified 07/15/19 15:08 Sulfa (Sulfonamide Allergy Rash/Hives Verified 07/15/19 15:08 Antibiotics) Review of Systems ROS Other: All systems not noted in ROS Statement are negative. <Sonu Chun - Last Filed: 11/06/20 14:56> ROS Other: All systems not noted in ROS Statement are negative. <Andrey Marcus - Last Filed: 11/06/20 16:26> ROS Statement: Those systems with pertinent positive or pertinent negative responses have been documented in the HPI. 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. HEAVY MENSES WITH LARGE CLOTS History of Any Multi-Drug Resistant Organisms: None Reported Past Surgical History: No Surgical Hx Reported, Hysterectomy, Tubal Ligation Additional Past Surgical History / Comment(s): wisdom teeth Past Anesthesia/Blood Transfusion Reactions: No Reported Reaction Past Psychological History: No Psychological Hx Reported Smoking Status: Never smoker Past Alcohol Use History: None Reported - Past Family History Mother History Unknown: Yes Family Medical History: Cancer Additional Family Medical History / Comment(s): Had tumor on Fallopian tube. <Andrey Marcus - Last Filed: 11/06/20 16:26> General Exam Limitations: no limitations General appearance: alert, in no apparent distress, anxious Head exam: Present: atraumatic, normocephalic, normal inspection Eye exam: Present: normal appearance, PERRL, EOMI Pupils: Present: normal accommodation ENT exam: Present: normal exam, normal oropharynx, mucous membranes moist, TM's normal bilaterally, normal external ear exam Neck exam: Present: normal inspection, full ROM. Absent: tenderness, lymphadenopathy Respiratory exam: Present: normal lung sounds bilaterally. Absent: respiratory distress, wheezes, rales, rhonchi, stridor, chest wall tenderness, accessory muscle use Cardiovascular Exam: Present: regular rate, normal rhythm, normal heart sounds. Absent: systolic murmur, diastolic murmur GI/Abdominal exam: Present: soft. Absent: distended, tenderness, guarding, rebound Extremities exam: Present: normal inspection, full ROM, normal capillary refill, other (Palpable ulnar and radial pulses bilaterally. Palpable DP and PT bilaterally.). Absent: tenderness, pedal edema, joint swelling, calf tenderness Back exam: Present: normal inspection, full ROM, tenderness, vertebral tendern ess (Midthoracic). Absent: CVA tenderness (R), CVA tenderness (L) Neurological exam: Present: alert, oriented X3 Psychiatric exam: Present: normal affect, normal mood Skin exam: Present: warm, dry, intact, normal color <Andrey Marcus Last Filed: 11/06/20 16:26> Course Vital Signs 11/06/20 11/06/20 12:41 14:24 Temperature 98.4 F 97.6 F Pulse Rate 84 57 L Respiratory 20 18 Rate Blood Pressure 138/90 134/77 O2 Sat by Pulse 100 Oximetry EKG Findings - EKG Results: EKG: interpreted by ERMD, sinus rhythm (EKG shows sinus rhythm of 82. Interval 148 QRS duration 82 QT since QTC 364/425 evidence of sinus arrhythmia no acute ST-T wave changes) <Sonu Chun - Last Filed: 11/06/20 14:56> Medical Decision Making - Lab Data Result diagrams: 11/06/20 13:44 11/06/20 13:44 <Sonu Chun - Last Filed: 11/06/20 14:56> - Lab Data Result diagrams: 11/06/20 13:44 11/06/20 13:44 <Andrey Marcus - Last Filed: 11/06/20 16:26> - Medical Decision Making 25-year-old female with history of anxiety presents to the emergency department with a chief complaint of back and chest pain. On physical examination, patient is quite anxious but the chest pain is not reproducible to palpation. She does have mild reproducible midthoracic back pain. Laboratory work is unremarkable. EKG showed no acute findings. I did give the patient 1 mg of Ativan which helped alleviate some of the symptoms. She was also given a Lidoderm patch. I discussed the possibility for a section although it is very low on the differential. The mother and patient agreed he would like to have the imaging performed. CT angios of the aorta thoracic and abdomen and pelvis shows no acute findings. I suspect this patient's symptoms are caused by combination of acute anxiety and back pain. Return primers were thoroughly discussed with patient who was understanding and agreeable. Case discussed with Dr. Chun. (Andrey Marcus) - Lab Data Lab Results 11/06/20 11/06/20 11/06/20 Range/Units 13:44 13:44 13:44 WBC 7.3 (3.8-10.6) k/uL RBC 4.82 (3.80-5.40) m/uL Hgb 13.7 (11.4-16.0) gm/dL Hct 41.2 (34.0-46.0) % MCV 85.4 (80.0-100.0) fL MCH 28.4 (25.0-35.0) pg MCHC 33.3 (31.0-37.0) g/dL RDW 13.8 (11.5-15.5) % Plt Count 388 (150-450) k/uL MPV 6.8 Neutrophils % 54 % Lymphocytes % 34 % Monocytes % 6 % Eosinophils % 4 % Basophils % 1 % Neutrophils # 3.9 (1.3-7.7) k/uL Lymphocytes # 2.5 (1.0-4.8) k/uL Monocytes # 0.4 (0-1.0) k/uL Eosinophils # 0.3 (0-0.7) k/uL Basophils # 0.1 (0-0.2) k/uL PT 10.2 (9.0-12.0) sec INR 0.9 (<1.2) APTT 23.8 (22.0-30.0) sec D-Dimer 0.30 (<0.60) mg/L FEU Sodium 141 (137-145) mmol/L Potassium 3.9 (3.5-5.1) mmol/L Chloride 108 H (98-107) mmol/L Carbon Dioxide 25 (22-30) mmol/L Anion Gap 8 mmol/L BUN 7 (7-17) mg/dL Creatinine 0.66 (0.52-1.04) mg/dL Est GFR (CKD-EPI)AfAm >90 (>60 ml/min/1.73 sqM) Est GFR (CKD-EPI)NonAf >90 (>60 ml/min/1.73 sqM) Glucose 85 (74-99) mg/dL Calcium 9.4 (8.4-10.2) mg/dL Magnesium 2.3 (1.6-2.3) mg/dL Total Bilirubin 0.5 (0.2-1.3) mg/dL AST 29 (14-36) U/L ALT 24 (4-34) U/L Alkaline Phosphatase 76 (38-126) U/L Troponin I (0.000-0.034) ng/mL Total Protein 7.4 (6.3-8.2) g/dL Albumin 4.3 (3.5-5.0) g/dL Lipase 102 (23-300) U/L 11/06/20 Range/Units 13:44 WBC (3.8-10.6) k/uL RBC (3.80-5.40) m/uL Hgb (11.4-16.0) gm/dL Hct (34.0-46.0) % MCV (80.0-100.0) fL MCH (25.0-35.0) pg MCHC (31.0-37.0) g/dL RDW (11.5-15.5) % Plt Count (150-450) k/uL MPV Neutrophils % % Lymphocytes % % Monocytes % % Eosinophils % % Basophils % % Neutrophils # (1.3-7.7) k/uL Lymphocytes # (1.0-4.8) k/uL Monocytes # (0-1.0) k/uL Eosinophils # (0-0.7) k/uL Basophils # (0-0.2) k/uL PT (9.0-12.0) sec INR (<1.2) APTT (22.0-30.0) sec D-Dimer (<0.60) mg/L FEU Sodium (137-145) mmol/L Potassium (3.5-5.1) mmol/L Chloride (98-107) mmol/L Carbon Dioxide (22-30) mmol/L Anion Gap mmol/L BUN (7-17) mg/dL Creatinine (0.52-1.04) mg/dL Est GFR (CKD-EPI)AfAm (>60 ml/min/1.73 sqM) Est GFR (CKD-EPI)NonAf (>60 ml/min/1.73 sqM) Glucose (74-99) mg/dL Calcium (8.4-10.2) mg/dL Magnesium (1.6-2.3) mg/dL Total Bilirubin (0.2-1.3) mg/dL AST (14-36) U/L ALT (4-34) U/L Alkaline Phosphatase (38-126) U/L Troponin I <0.012 (0.000-0.034) ng/mL Total Protein (6.3-8.2) g/dL Albumin (3.5-5.0) g/dL Lipase (23-300) U/L Disposition <Sonu Chun - Last Filed: 11/06/20 14:56> Is patient prescribed a controlled substance at d/c from ED?: No Time of Disposition: 16:06 <Andrey Marcus - Last Filed: 11/06/20 16:26> Clinical Impression: Acute anxiety, Back pain Disposition: HOME SELF-CARE Condition: Stable Instructions (If sedation given, give patient instructions): Anxiety (ED) Additional Instructions: Please return to the Emergency Department if symptoms worsen or any other concerns. Referrals: Charles Song MD [Primary Care Provider] - 1-2 days
[2020-11-06] MEDS ORDERED: LIDOCAINE 5% PATCH TOPICAL STA (15:41)
--- NOTE | 2020-11-06 15:53 | CT ---
EXAMINATION TYPE: CT angio thor/abd pel aorta DATE OF EXAM: 11/06/2020 COMPARISON: None HISTORY: Pain between shoulder blades and abdominal pain. CT DLP: 1605 mGycm Automated exposure control for dose reduction was used. CONTRAST: Performed without and with IV Contrast, patient injected with 100 mL of Isovue 370. There are 3-D post processed images. Thoracic aorta is intact. There is no aneurysm or dissection. There is no mediastinal adenopathy. The re are no hilar masses. The lungs are clear of infiltrate. There is no pleural effusion. Heart size i s normal. Liver spleen pancreas gallbladder stomach appear normal. The bile ducts are not dilated. There is no adrenal mass. Kidneys show satisfactory contrast opacification. There is no hydronephrosi s. Bladder distends smoothly. There is no inguinal hernia. There is no free fluid in the pelvis. Blad milo distends smoothly. There appears to be some deformity of the uterus that could be a bicornuate ut erus. Lumbar and thoracic vertebra appear intact. The disc spaces are normal. There is no compression fract ure. The bony pelvis is intact. Hip joints are intact. Thoracic and abdominal aorta appear intact. There is no aneurysm or dissection. There is arterial andrew w in the superior mesenteric artery and celiac artery. There is arterial flow in both renal arteries. There is arterial flow in the iliac and femoral arteries. I see no hemodynamic stenosis. There is no evidence of arterial aneurysm or dissection. The appendix appears normal. There is no mesenteric felisha ma. There is no ascites or free air. There is no sign of a bowel obstruction. IMPRESSION: Negative CT angiogram of the chest abdomen pelvis.
[2020-11-06 16:47] VITALS: BP 141/93; PULSE 64; RESP 17; TEMP 98.2
== END 2020-11-06 16:55 | disposition home or self-care (01) ==
LOC: EC 12:37
DX: F41.9 Anxiety disorder, unspecified (principal); M54.9 Dorsalgia, unspecified; J45.909 Unspecified asthma, uncomplicated; Z90.710 Acquired absence of both cervix and uterus; Z98.51 Tubal ligation status
CPT/HCPCS: 36415; 93005; 85379; 80053; 83690; 83735; 84484; 85025; 85610; 85730; 71046; 71275; 74174; 99284; 96374; J2060; Q9967

== ENCOUNTER 2021-03-01 14:36 | Emergency (ER) | payer OTHER ==
[2021-03-01 14:57] VITALS: BP 139/83; PULSE 82; RESP 16; TEMP 98
[2021-03-01] MEDS ORDERED: ORPHENADRINE 30 MG/ML 2 ML VIAL IM STA (15:20)
[2021-03-01] MEDS ORDERED: HYDROcodone/APAP 7.5-325MG 1 EACH TAB PO ONE (15:20)
[2021-03-01] MEDS ORDERED: traMADol 50 MG STARTER PACK 3 TAB BTL PO STA (15:20)
--- NOTE | 2021-03-01 15:27 | ED ---
Back Pain HPI - General Chief Complaint: Back Pain/Injury Stated Complaint: iHS-severe back pain Time Seen by Provider: 03/01/21 14:59 Source: patient Limitations: no limitations - History of Present Illness Initial Comments: Patient is a 25-year-old female presenting to the emergency Department with complaints of lower back pain that started about 11 AM today. Patient states she was at work and lifted a heavy pallet started feeling tightness in her low back. States that this continued over the last few hours and she came in for evaluation. She denies any numbness and tingling into her legs, no saddle paresthesia. Denies any bowel or bladder incontinence. She does admit to some mild pain into her left upper leg. She denies any previous injuries or surgeries to her back. She denies being secondary to hysterectomy. She has no fevers or chills, no other complaints today. - Related Data Home Medications Medication Instructions Recorded Confirmed Albuterol Inhaler (Mhu) [Ventolin 1 - 2 puff INHALATION RT-Q6H PRN 07/15/19 07/15/19 Hfa Inhaler] Previous Rx's Medication Instructions Recorded HYDROcodone/APAP 5-325MG [[place] 1 each PO Q6HR PRN #18 tab 07/21/19 5-325] Ibuprofen [Motrin] 600 mg PO Q6HR PRN #60 tab 07/21/19 Allergies Allergy/AdvReac Type Severity Reaction Status Date / Time Influenza Virus Vaccines Allergy Nausea & Verified 03/01/21 14:57 Vomiting Penicillins Allergy Rash/Hives Verified 03/01/21 14:57 Sulfa (Sulfonamide Allergy Rash/Hives Verified 03/01/21 14:57 Antibiotics) Review of Systems ROS Statement: Those systems with pertinent positive or pertinent negative responses have been documented in the HPI. ROS Other: All systems not noted in ROS Statement are negative. 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. HEAVY MENSES WITH LARGE CLOTS History of Any Multi-Drug Resistant Organisms: None Reported Past Surgical History: No Surgical Hx Reported, Hysterectomy, Tubal Ligation Additional Past Surgical History / Comment(s): wisdom teeth Past Anesthesia/Blood Transfusion Reactions: No Reported Reaction Past Psychological History: No Psychological Hx Reported Smoking Status: Never smoker Past Alcohol Use History: None Reported Past Drug Use History: None Reported - Past Family History Mother History Unknown: Yes Family Medical History: Cancer Additional Family Medical History / Comment(s): Had tumor on Fallopian tube. General Exam - General Exam Comments Initial Comments: GENERAL: Patient is well-developed and well-nourished. Patient is nontoxic and in mild distress. HEAD: Atraumatic, normocephalic. EYES: Pupils equal round and reactive to light, extraocular movements intact, sclera anicteric, conjunctiva are normal. Eyelids were unremarkable. NECK: Normal range of motion, supple without lymphadenopathy or JVD. No midline tenderness. LUNGS: Unlabored respirations. Breath sounds clear to auscultation bilaterally and equal. No wheezes rales or rhonchi. HEART: Regular rate and rhythm without murmurs, rubs or gallops. ABDOMEN: Soft, nontender, normoactive bowel sounds. No guarding, no rebound. No masses appreciated. : Deferred MUSCULOSKELETAL: Normal extremities with adequate strength and normal range of motion, no pitting or edema. No clubbing or cyanosis. Pain with palpation of the lumbar area, lumbar paraspinals. Spasms present. NEUROLOGICAL: Patient is alert and oriented x 3. Motor and sensory are also intact. Cranial nerves II through XII grossly intact. Symmetrical smile. Normal speech, normal gait. PSYCH: Normal mood, normal affect. SKIN: Warm, Dry, normal turgor, no rashes or lesions noted. Limitations: no limitations Course Vital Signs 03/01/21 14:54 Temperature 98 F Pulse Rate 82 Respiratory 16 Rate Blood Pressure 139/83 O2 Sat by Pulse 100 Oximetry Medical Decision Making - Medical Decision Making Patient is a 25-year-old female here with lumbar pain after she picked up a heavy pallet today at work. This happened about 11 AM today. She's been trying ibuprofen, Aleve without any improvement. She is no acute neuro deficits today, no signs of cardiac rehab. Her vitals are stable. Patient was given a shot of muscle relaxer and a tablet pain medicine. I will give her a starter pack of tramadol go home with. Patient was requesting an XR even though I told her I felt it was not needed, lumbar x-ray reveals no acute process. I recommended they continue with heat and/or ice to the area. Shes in agreement with this plan of care and is stable for discharge. Disposition Clinical Impression: Strain of lumbar region Disposition: HOME SELF-CARE Condition: Stable Instructions (If sedation given, give patient instructions): Acute Low Back Pain (ED) Additional Instructions: Please return to the Emergency Department if symptoms worsen or any other concerns. May use ice and/or heat to the area. Is patient prescribed a controlled substance at d/c from ED?: No Referrals: Charles Song MD [Primary Care Provider] - 1-2 days Time of Disposition: 15:59
--- NOTE | 2021-03-01 15:56 | XR ---
EXAMINATION TYPE: XR lumbar spine 2 or 3V DATE OF EXAM: 03/01/2021 CLINICAL HISTORY: Low back pain after lifting injury. TECHNIQUE: Frontal and lateral images of the lumbar spine are obtained. COMPARISON: CTA aorta November 06, 2020 FINDINGS: There are 6 lumbar type vertebral bodies redemonstrated. The lumbar spine shows stable an d satisfactory alignment without evidence of acute fracture or dislocation. Vertebral body heights an d disk space heights remain within normal limits. The overlying soft tissue appears unremarkable. IMPRESSION: As above.
== END 2021-03-01 16:17 | disposition home or self-care (01) ==
LOC: EC 14:36
DX: S39.012A Strain of muscle, fascia and tendon of lower back, initial encounter (principal); J45.909 Unspecified asthma, uncomplicated; Z88.0 Allergy status to penicillin; Z88.2 Allergy status to sulfonamides; Z88.7 Allergy status to serum and vaccine; Z90.710 Acquired absence of both cervix and uterus; Z98.51 Tubal ligation status; X50.0XXA Overexertion from strenuous movement or load, initial encounter
CPT/HCPCS: 99283; 96372; 72100; J2360

== ENCOUNTER → 2022-01-08 | Outpatient (CLI) | payer OTHER ==
--- NOTE | 2022-01-08 10:56 | US ---
EXAMINATION TYPE: US abdomen complete DATE OF EXAM: 01/08/2022 COMPARISON: NONE CLINICAL HISTORY: 26-year-old female [id number] RIGHT UPPER QUAD PAIN. RUQ pain. TECHNIQUE: Multiple sonographic images of the abdomen are obtained. FINDINGS: EXAM MEASUREMENTS: Liver Length: 16.6 cm Gallbladder Wall: 0.1 cm CBD: 0.1 cm Spleen: 9.9 cm Right Kidney: 11.0 x 5.7 x 4.0 cm Left Kidney: 11.3 x 4.7 x 5.6 cm Pancreas: wnl Liver: wnl Gallbladder: wnl Evidence for sonographic Hudson's sign: neg CBD: wnl Spleen: wnl Right Kidney: No hydronephrosis or masses seen Left Kidney: No hydronephrosis or masses seen Upper IVC: wnl Abd Aorta: No AAA visualized IMPRESSION: Unremarkable sonographic examination of the abdomen.
== END | disposition home or self-care (01) ==
LOC: RADUSWWP 06:47
PROVIDERS: ATTEND Internal Medicine
DX: R10.11 Right upper quadrant pain (principal)
CPT/HCPCS: 76700

== ENCOUNTER → 2022-11-14 | Outpatient (CLI) | payer OTHER ==
--- NOTE | 2022-11-15 07:33 | US ---
EXAMINATION TYPE: US thyroid st tissue head/neck DATE OF EXAM: 11/14/2022 COMPARISON: US 2012 CLINICAL INDICATION: Female, 27 years old with history of R22.0 LOCALIZED SWELLING, MASS AND LUMP, HE AD; Pt states palpable lump right anterior neck, pt also states history of thyroid cancer in family TECHNIQUE: Multiple sonographic images of the thyroid gland are obtained. FINDINGS: GLAND SIZE: Right Lobe: 4.3 x 1.5 x 1.2 cm Overall Parenchyma: homogenous Left Lobe: 3.4 x 1.4 x 1.2 cm Overall Parenchyma: homogeneous Isthmus Thickness: 0.2 cm NODULES RIGHT: # of nodules measured on right: 0 LEFT: # of nodules measured on left: 0 ISTHMUS: # of nodules measured in the isthmus: 0 [employer] notes: Bilateral neck scanned, in area of pt's palpable right anterior neck there is a pr ominent but nonenlarged lymph node= 1.8 x 0.4 x 0.4 cm/ Thyroid appeared wnl. IMPRESSION: 1. Normal appearance to the thyroid gland. No discrete nodules. Vertebral alignment is a right anterior neck at the patient's palpable site, there is a prominent but nonenlarged lymph node. Normal 4 mm short axis measurement. As this is slightly thickened and palpab le, recommend clinical follow-up to ensure stability/resolution. If it persists or enlarges, consider rescanning.
== END | disposition home or self-care (01) ==
LOC: RADUSWWP 16:14
PROVIDERS: ATTEND Internal Medicine
DX: R22.0 Localized swelling, mass and lump, head (principal)
CPT/HCPCS: 76536